=== PATIENT | male | born 1995 | race Caucasian/White ===

== ENCOUNTER 2017-08-03 22:37 | Emergency (ER) | payer OTHER ==
--- NOTE | 2017-08-03 22:48 | EDM.PDOC ---
ED HPI GENERAL MEDICAL PROBLEM - General Chief Complaint: Fever Stated Complaint: WEAK/DIZZY/NAUSEA/CHILLS Time Seen by Provider: 08/03/17 22:48 Source of Information: Reports: Patient - History of Present Illness INITIAL COMMENTS - FREE TEXT/NARRATIVE: HISTORY AND PHYSICAL: History of present illness: [Patient presents to emergency room by private vehicle He has returned from [place] where he was at a cousin's , his cousin from flu B. Unexpectedly. Patient states he has had fever nausea chills since noon today he did take a Tylenol, he reports fever up to 102. Patient is in no distress whatsoever no active fever at current no distress not clinically ill, denies ear pain sore throat no nasal discharge no vomiting no diarrhea no abdominal pain. No current fever nausea vomiting chills sweats no chest pain shortness breath headache dizziness or palpitation no bowel or urine symptoms ] Review of systems: As per history of present illness and below otherwise all systems reviewed and negative. Past medical history: As per history of present illness and as reviewed below otherwise noncontributory. Surgical history: As per history of present illness and as reviewed below otherwise noncontributory. Social history: No reported history of drug or alcohol abuse. Family history: As per history of present illness and as reviewed below otherwise noncontributory. Physical exam: HEENT: Atraumatic, normocephalic, pupils reactive, negative for conjunctival pallor or scleral icterus, mucous membranes moist, throat clear, neck supple, nontender, trachea midline. Tympanic membranes clear no meningeal sign Lungs: Clear to auscultation, breath sounds equal bilaterally, chest nontender. Heart: S1S2, regular, negative for clicks, rubs, or JVD. Abdomen: Soft, nondistended, nontender. Negative for masses or hepatosplenomegaly. Negative for costovertebral tenderness. Pelvis: Stable nontender. Genitourinary: Deferred. Rectal: Deferred. Extremities: Atraumatic, negative for cords or calf pain. Neurovascular unremarkable. Neuro: Awake, alert, oriented. Cranial nerves II through XII unremarkable. Cerebellum unremarkable. Motor and sensory unremarkable throughout. Exam nonfocal. Diagnostics: [Chest 2 views Strep/influenzaUA ] Therapeutics: [None ] Impression: [Medical screening exam Generally healthy 21-year-old male ] Definitive disposition and diagnosis as appropriate pending reevaluation and review of above. 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 [No Known Home Meds] 08/03/17 [History] Past Medical History - Past Surgical History Musculoskeletal Surgical History: Reports: Other (See Below) Social & Family History - Family History Family Medical History: Noncontributory - Tobacco Use Smoking Status *Q: Never Smoker Second Hand Smoke Exposure: No - Recreational Drug Use Recreational Drug Use: No ED ROS GENERAL - Review of Systems Review Of Systems: ROS reveals no pertinent complaints other than HPI. ED EXAM, GENERAL - Physical Exam Exam: See Below Course - Vital Signs Last Recorded V/S: Last Vital Signs Temp 98.2 F 08/03/17 22:48 Pulse 107 H 08/03/17 22:48 Resp 16 08/03/17 22:48 BP 116/74 08/03/17 22:48 Pulse Ox 95 08/03/17 22:48 - Orders/Labs/Meds Orders: Active Orders 24 hr Category Date Time Status Chest 2V [CR] Stat Exams 08/03/17 22:48 Taken CULTURE STREP A CONFIRMATION [] Stat Lab 08/03/17 22:52 Results INFLUENZA A+B AG SCREEN [] Stat Lab 08/03/17 22:52 Ordered STREP SCRN A RAPID W CULT CONF [] Stat Lab 08/03/17 22:52 Ordered UA W/MICROSCOPIC [URIN] Stat Lab 08/03/17 23:17 Ordered Labs: Laboratory Tests 08/03/17 Range/Units 23:17 Urine Color YELLOW Urine Appearance CLEAR Urine pH 5.5 (5.0-8.0) Ur Specific [place] >= 1.030 (1.001-1.035) Urine Protein NEGATIVE (NEGATIVE) mg/dL Urine Glucose (UA) NEGATIVE (NEGATIVE) mg/dL Urine Ketones NEGATIVE (NEGATIVE) mg/dL Urine Occult Blood NEGATIVE (NEGATIVE) Urine Nitrite NEGATIVE (NEGATIVE) Urine Bilirubin NEGATIVE (NEGATIVE) Urine Urobilinogen 0.2 (<2.0) EU/dL Ur Leukocyte Esterase NEGATIVE (NEGATIVE) Urine RBC 0-2 (0-2/HPF) Urine WBC 0-2 (0-5/HPF) Ur Epithelial Cells RARE (NONE-FEW) Urine Bacteria RARE (NEGATIVE) Urine Mucus FEW (NONE-MOD) Departure - Departure Time of Disposition: 23:58 Disposition: Home, Self-Care 01 Condition: Good Clinical Impression: Encounter for medical screening examination - Discharge Information Referrals: PCP,None [Primary Care Provider] - Forms: ED Department Discharge Additional Instructions: No specific treatment warranted at this time Return if symptoms persist or worsen or new concerning symptoms develop Follow-up with primary care in 2 weeks sooner as needed [facility] - Primary Care [address] [place] [id number] The following information is given to patients seen in the emergency department who are being discharged to home. This information is to outline your options for follow-up care. We provide all patients seen in our emergency department with a follow-up referral. The need for follow-up, as well as the timing and circumstances, are variable depending upon the specifics of your emergency department visit. If you don't have a primary care physician on staff, we will provide you with a referral. We always advise you to contact your personal physician following an emergency department visit to inform them of the circumstance of the visit and for follow-up with them and/or the need for any referrals to a consulting specialist. The emergency department will also refer you to a specialist when appropriate. This referral assures that you have the opportunity for follow-up care with a specialist. All of these measure are taken in an effort to provide you with optimal care, which includes your follow-up. Under all circumstances we always encourage you to contact your private physician who remains a resource for coordinating your care. When calling for follow-up care, please make the office aware that this follow-up is from your recent emergency room visit. If for any reason you are refused follow-up, please contact the [facility] emergency department at and asked to speak to the emergency department charge nurse. - My Orders Last 24 Hours: My Active Orders 08/03/17 22:48 Chest 2V [CR] Stat 08/03/17 22:52 CULTURE STREP A CONFIRMATION [RM] Stat INFLUENZA A+B AG SCREEN [RM] Stat STREP SCRN A RAPID W CULT CONF [RM] Stat 08/03/17 23:17 UA W/MICROSCOPIC [URIN] Stat - Assessment/Plan Last 24 Hours: My Active Orders 08/03/17 22:48 Chest 2V [CR] Stat 08/03/17 22:52 CULTURE STREP A CONFIRMATION [RM] Stat INFLUENZA A+B AG SCREEN [RM] Stat STREP SCRN A RAPID W CULT CONF [RM] Stat 08/03/17 23:17 UA W/MICROSCOPIC [URIN] Stat
[2017-08-04 00:06] VITALS: BP 110/71
--- NOTE | 2017-08-04 14:56 | CR ---
EXAM DATE: 08/03/17 PATIENT'S AGE: 21 Patient: INOCENTE MIRELES Facility: [place], [place] Site . Site : 1995 Study: XRay Chest [id number]/12/2018 11:06:08 PM Ordering Physician: Tanya Rader Final Report: INDICATION: fever, fatigue, nausea CHEST, PA AND LATERAL Upright PA and lateral radiographs of the chest were performed. Comparison: No previous studies are currently available for comparison. The lungs appear clear and there are no pleural effusions. Heart size and pulmonary vasculature appear normal. Visualized bones show no significant findings. IMPRESSION: No acute intrathoracic abnormality identified. AARON ACOSTA MD [employer] Dictated by: Waqar Acosta MD @ 08/03/2017 23:13:50 (Electronic Signature) Report Signed by Proxy. [facility]
== END 2017-08-04 00:05 | disposition home or self-care (01) ==
LOC: MW.ED 22:37
DX: Z13.89 Encounter for screening for other disorder (principal); Z88.1 Allergy status to other antibiotic agents; Z88.8 Allergy status to other drugs, medicaments and biological substances
CPT/HCPCS: 71046; 71046-26; 81001; 87081; 87804; 87880; 99283; 99284

== ENCOUNTER 2018-01-20 09:20 | Emergency (ER) | payer BC, OTHER ==
--- NOTE | 2018-01-20 10:06 | EDM.PDOC ---
ED HPI GENERAL MEDICAL PROBLEM - General Chief Complaint: General Stated Complaint: HEADACHES AND FEVER Time Seen by Provider: 01/20/18 10:04 Source of Information: Reports: Patient - History of Present Illness INITIAL COMMENTS - FREE TEXT/NARRATIVE: HISTORY AND PHYSICAL: History of present illness: Patient with sore throat for 24 hours after being around strep positive patient' s no measured fever nausea chills sweats although he does have subjective fever chills and headache No drooling trismus or muffled voice some difficulty with solids no difficulty with liquids Review of systems: As per history of present illness and below otherwise all systems reviewed and negative. Past medical history: As per history of present illness and as reviewed below otherwise noncontributory. Surgical history: As per history of present illness and as reviewed below otherwise noncontributory. Social history: No reported history of drug or alcohol abuse. Family history: As per history of present illness and as reviewed below otherwise noncontributory. Physical exam: HEENT: Atraumatic, normocephalic, pupils reactive, negative for conjunctival pallor or scleral icterus, mucous membranes moist, throat clear, neck supple, nontender, trachea midline.Uttered erythema slight exudates no abscess apparent Lungs: Clear to auscultation, breath sounds equal bilaterally, chest nontender. Heart: S1S2, regular, negative for clicks, rubs, or JVD. Abdomen: Soft, nondistended, nontender. Negative for masses or hepatosplenomegaly. Negative for costovertebral tenderness. Pelvis: Stable nontender. Genitourinary: Deferred. Rectal: Deferred. Extremities: Atraumatic, negative for cords or calf pain. Neurovascular unremarkable. Neuro: Awake, alert, oriented. Cranial nerves II through XII unremarkable. Cerebellum unremarkable. Motor and sensory unremarkable throughout. Exam nonfocal. Diagnostics: [Clinical ] Therapeutics: [Z-Heraclio ] Impression: pharyngitis Definitive disposition and diagnosis as appropriate pending reevaluation and review of above. Throat Pain Score (Numeric/FACES): 7 - Related Data Allergies Allergy/AdvReac Type Severity Reaction Status Date / Time amoxicillin trihydrate Allergy Rash Verified 01/20/18 09:45 [From Augmentin] potassium clavulanate Allergy Rash Verified 01/20/18 09:45 [From Augmentin] Home Meds: Home Meds . [No Known Home Meds] 08/03/17 [History] Past Medical History - Past Health History Medical/Surgical History: Denies Medical/Surgical History Neurological History: Reports: Concussion - Infectious Disease History Infectious Disease History: Reports: Chicken Pox - Past Surgical History Musculoskeletal Surgical History: Reports: Other (See Below) Other Musculoskeletal Surgeries/Procedures:: hand surgery Social & Family History - Family History Family Medical History: Noncontributory - Tobacco Use Smoking Status *Q: Never Smoker - Caffeine Use Caffeine Use: Reports: Energy Drinks, Soda - Recreational Drug Use Recreational Drug Use: No ED ROS GENERAL - Review of Systems Review Of Systems: See Below ED EXAM, GENERAL - Physical Exam Exam: See Below Course - Vital Signs Last Recorded V/S: Last Vital Signs Temp 99.8 F 01/20/18 09:39 Pulse 106 H 01/20/18 09:39 Resp 22 H 01/20/18 09:39 BP 116/73 01/20/18 09:39 Pulse Ox 95 01/20/18 09:39 Departure - Departure Time of Disposition: 10:06 Disposition: Home, Self-Care 01 Condition: Good Clinical Impression: Pharyngitis - Discharge Information Referrals: PCP,None [Primary Care Provider] - Additional Instructions: The following information is given to patients seen in the emergency department who are being discharged to home. This information is to outline your options for follow-up care. We provide all patients seen in our emergency department with a follow-up referral. The need for follow-up, as well as the timing and circumstances, are variable depending upon the specifics of your emergency department visit. If you don't have a primary care physician on staff, we will provide you with a referral. We always advise you to contact your personal physician following an emergency department visit to inform them of the circumstance of the visit and for follow-up with them and/or the need for any referrals to a consulting specialist. The emergency department will also refer you to a specialist when appropriate. This referral assures that you have the opportunity for follow-up care with a specialist. All of these measure are taken in an effort to provide you with optimal care, which includes your follow-up. Under all circumstances we always encourage you to contact your private physician who remains a resource for coordinating your care. When calling for follow-up care, please make the office aware that this follow-up is from your recent emergency room visit. If for any reason you are refused follow-up, please contact the [facility] emergency department at and asked to speak to the emergency department charge nurse.
[2018-01-20 10:18] VITALS: BP 114/63
== END 2018-01-20 10:15 | disposition home or self-care (01) ==
LOC: MW.ED 09:20
DX: J02.9 Acute pharyngitis, unspecified (principal)
CPT/HCPCS: 99282

== ENCOUNTER 2018-12-18 21:03 | Emergency (ER) | payer BC ==
--- NOTE | 2018-12-18 21:25 | EDM.PDOC ---
ED HPI GENERAL MEDICAL PROBLEM - General Chief Complaint: Upper Extremity Injury/Pain Stated Complaint: PT HURT LT HAND Time Seen by Provider: 12/18/18 21:05 Source of Information: Reports: Patient History Limitations: Reports: No Limitations - History of Present Illness INITIAL COMMENTS - FREE TEXT/NARRATIVE: HISTORY AND PHYSICAL: History of present illness: Patient is a 22-year-old male who presents to the emergency room today with complaints of left hand pain post fall. He states he was climbing down from a ladder on the back of a semitruck when he slipped and fell, landing on the ground. Has pain with closing his fist at the proximal second, third and fourth knuckles. Denies hitting his head or having any loss of consciousness. Denies any other extremity involvement. No systemic complaints. Review of systems: As per history of present illness and below otherwise all systems reviewed and negative. Past medical history: As per history of present illness and as reviewed below otherwise noncontributory. Surgical history: As per history of present illness and as reviewed below otherwise noncontributory. Social history: See social history for further information Family history: As per history of present illness and as reviewed below otherwise noncontributory. Physical exam: General: Well-developed and well-nourished 42-year-old male. Alert and oriented. Nontoxic appearing and in no acute distress. HEENT: Atraumatic, normocephalic, pupils equal and reactive bilaterally, negative for conjunctival pallor or scleral icterus, mucous membranes moist, TMs normal bilaterally, throat clear, neck supple, nontender, trachea midline. No drooling or trismus noted. No meningeal signs. No hot potato voice noted. Lungs: Clear to auscultation, breath sounds equal bilaterally, chest nontender. Heart: S1S2, regular rate and rhythm without overt murmur Abdomen: Soft, nondistended, nontender. Negative for masses or hepatosplenomegaly. Negative for costovertebral tenderness. Pelvis: Stable nontender. Genitourinary: Deferred. Rectal: Deferred. Skin: Intact, warm, dry. No lesions or rashes noted. Extremities: Moves all extremities per self without difficulty or deficits, strong radial pulse. Tenderness with palpation to the proximal second, third, fourth knuckles of the left hand. No soft tissue swelling noted. Good flexion and extension. Neurovascular unremarkable. Neuro: Awake, alert, oriented. Cranial nerves II through XII unremarkable. Cerebellum unremarkable. Motor and sensory unremarkable throughout. Exam nonfocal. Notes: X-ray shows no acute findings. Information was shared with the patient. Encouraged to follow up with orthopedic provider. Supportive care measures were reviewed and discussed. Voices understanding and is agreeable to plan of care. Denies any further questions or concerns at this time. Diagnostics: Hand x-ray Therapeutics: Splint, Toradol IM Prescription: None Impression: Left hand injury Plan: 1. Rest, ice, elevate the affected extremity 2. Tylenol and/or Ibuprofen as needed for pain management. 3. Follow up with the Orthopedic provider as we discussed. Return to the ED as needed and as discussed. Definitive disposition and diagnosis as appropriate pending reevaluation and review of above. left hand Pain Score (Numeric/FACES): 8 - Related Data Allergies Allergy/AdvReac Type Severity Reaction Status Date / Time amoxicillin trihydrate Allergy Rash Verified 12/18/18 21:16 [From Augmentin] potassium clavulanate Allergy Rash Verified 12/18/18 21:16 [From Augmentin] Home Meds: Home Meds . [No Known Home Meds] 08/03/17 [History] Past Medical History - Past Health History Medical/Surgical History: Denies Medical/Surgical History Neurological History: Reports: Concussion - Infectious Disease History Infectious Disease History: Reports: Chicken Pox - Past Surgical History Musculoskeletal Surgical History: Reports: Other (See Below) Other Musculoskeletal Surgeries/Procedures:: Left hand surgery Social & Family History - Family History Family Medical History: Noncontributory - Tobacco Use Smoking Status *Q: Never Smoker - Caffeine Use Caffeine Use: Reports: Energy Drinks, Soda - Recreational Drug Use Recreational Drug Use: No Review of Systems - Review of Systems Review Of Systems: ROS reveals no pertinent complaints other than HPI. ED EXAM, GENERAL - Physical Exam Exam: See Below (See dictation) Course - Vital Signs Last Recorded V/S: Last Vital Signs Temp 97.3 F 12/18/18 21:03 Pulse 77 12/18/18 21:03 Resp 18 12/18/18 21:03 BP 124/64 12/18/18 21:03 Pulse Ox 98 12/18/18 21:03 - Orders/Labs/Meds Orders: Active Orders 24 hr Category Date Time Status Hand Comp Min 3V Lt [CR] Stat Exams 12/18/18 21:05 Ordered Ketorolac [Toradol] Med 12/18/18 21:27 Once 60 mg IM ONETIME ONE DME for Discharge [COMM] Stat Oth 12/18/18 21:27 Ordered Departure - Departure Time of Disposition: 21:25 Disposition: Home, Self-Care 01 Clinical Impression: Injury of left hand Qualifiers: Encounter type: initial encounter Qualified Code(s): S69.92XA - Unspecified injury of left wrist, hand and finger(s), initial encounter - Discharge Information Forms: ED Department Discharge Additional Instructions: The following information is given to patients seen in the emergency department who are being discharged to home. This information is to outline your options for follow-up care. We provide all patients seen in our emergency department with a follow-up referral. The need for follow-up, as well as the timing and circumstances, are variable depending upon the specifics of your emergency department visit. If you don't have a primary care physician on staff, we will provide you with a referral. We always advise you to contact your personal physician following an emergency department visit to inform them of the circumstance of the visit and for follow-up with them and/or the need for any referrals to a consulting specialist. The emergency department will also refer you to a specialist when appropriate. This referral assures that you have the opportunity for follow-up care with a specialist. All of these measure are taken in an effort to provide you with optimal care, which includes your follow-up. Under all circumstances we always encourage you to contact your private physician who remains a resource for coordinating your care. When calling for follow-up care, please make the office aware that this follow-up is from your recent emergency room visit. If for any reason you are refused follow-up, please contact the [facility] Emergency Department at and asked to speak to the emergency department charge nurse. [facility] Primary [facility] [address] [place] [address] [id number] [address] [id number] 1. Rest, ice, elevate the affected extremity 2. Tylenol and/or Ibuprofen as needed for pain management. 3. Follow up with the Orthopedic provider as we discussed. Return to the ED as needed and as discussed. - My Orders Last 24 Hours: My Active Orders 12/18/18 21:05 Hand Comp Min 3V Lt [CR] Stat 12/18/18 21:27 Ketorolac [Toradol] 60 mg IM ONETIME ONE DME for Discharge [COMM] Stat - Assessment/Plan Last 24 Hours: My Active Orders 12/18/18 21:05 Hand Comp Min 3V Lt [CR] Stat 12/18/18 21:27 Ketorolac [Toradol] 60 mg IM ONETIME ONE DME for Discharge [COMM] Stat
[2018-12-18] MEDS ORDERED: Ketorolac 60 MG/2 ML SDV IM ONE (21:27)
--- NOTE | 2018-12-18 21:37 | CR ---
INDICATION: Fall, hand injury, pain TECHNIQUE: Hand radiograph 3 views left COMPARISON: None FINDINGS: Bone: No acute fractures or aggressive bone lesions are identified. Joint: The carpal and metacarpal-phalangeal joints are unremarkable in appearance. The interphalangeal joints are normal in appearance. Soft tissue: Unremarkable. No radiopaque foreign bodies are seen. IMPRESSION: 1. No acute osseous injuries or abnormalities are noted. Dictated by: Evelio Melo MD @ 12/18/2018 21:35:00 (Electronically Signed)
[2018-12-18 22:02] VITALS: BP 116/73
== END 2018-12-18 21:49 | disposition home or self-care (01) ==
LOC: MW.ED 21:03
DX: S69.92XA Unspecified injury of left wrist, hand and finger(s), initial encounter (principal); Z88.1 Allergy status to other antibiotic agents; W11.XXXA Fall on and from ladder, initial encounter
CPT/HCPCS: 73130; 96372; 99283; J1885

== ENCOUNTER 2019-02-19 17:29 | Emergency (ER) | payer SELFPAY ==
--- NOTE | 2019-02-19 17:31 | EDM.PDOC ---
ED HPI GENERAL MEDICAL PROBLEM - General Stated Complaint: MIGRAINE Time Seen by Provider: 02/19/19 17:30 Source of Information: Reports: Patient History Limitations: Reports: No Limitations - History of Present Illness INITIAL COMMENTS - FREE TEXT/NARRATIVE: HISTORY AND PHYSICAL: History of present illness: Patient is a 23-year-old male who presents to the emergency room today with complaints of sore throat, cough and headache. He states he has generally felt unwell over the past several days due to the symptoms but has progressively gotten worse today. Patient denies any fever, chills, headache, change in vision , syncope or near syncope. Denies any chest pain, back pain, shortness of breath or cough. Denies any abdominal pain, nausea, vomiting, diarrhea, constipation or dysuria. Has not noted any blood in urine or stool. Patient has been eating and drinking appropriately. Review of systems: As per history of present illness and below otherwise all systems reviewed and negative. Past medical history: As per history of present illness and as reviewed below otherwise noncontributory. Surgical history: As per history of present illness and as reviewed below otherwise noncontributory. Social history: See social history for further information Family history: As per history of present illness and as reviewed below otherwise noncontributory. Physical exam: General: Well-developed and well-nourished 23-year-old male. Alert and oriented. Nontoxic appearing and in no acute distress. HEENT: Atraumatic, normocephalic, pupils equal and reactive bilaterally, negative for conjunctival pallor or scleral icterus, mucous membranes moist, TMs normal bilaterally, throat erythematous without exudate, neck supple, nontender, trachea midline. No drooling or trismus noted. No meningeal signs. No hot potato voice noted. Lungs: Clear to auscultation, breath sounds equal bilaterally, chest nontender. Heart: S1S2, regular rate and rhythm without overt murmur Abdomen: Soft, nondistended, nontender. Skin: Intact, warm, dry. No lesions or rashes noted. Extremities: Atraumatic, moves all extremities per self without difficulty or deficits, negative for cords or calf pain. Neurovascular unremarkable. Neuro: Awake, alert, oriented. Cranial nerves II through XII unremarkable. Cerebellum unremarkable. Motor and sensory unremarkable throughout. Exam nonfocal. Notes: I did offer to to IV fluids and IV Toradol, he declines. He is agreeable to the swabs and chest x-ray. We will do a Toradol IM shot for his headache. All diagnostic are unremarkable. I will treat him with a Z-Heraclio and Phenergan with codeine. We discussed following up with primary care. Supportive care measures were reviewed and discussed. Voices understanding and is agreeable to plan of care. Denies any further questions or concerns at this time. Diagnostics: Influenza, strep, chest x-ray Therapeutics: Toradol IM Prescription: Zpak Phenergan w/ cod (#4 oz) Impression: Bronchitis Plan: 1. Please use Tylenol and/or Ibuprofen as needed for pain and fever management. 2. Get plenty of Rest. Encourage fluids to prevent dehydration. 3. Please follow up with your primary care provider. Return to the ED as needed as discussed. Definitive disposition and diagnosis as appropriate pending reevaluation and review of above. generalized Pain Score (Numeric/FACES): 8 - Related Data Allergies Allergy/AdvReac Type Severity Reaction Status Date / Time amoxicillin trihydrate Allergy Rash Verified 12/18/18 21:16 [From Augmentin] Penicillins Allergy Rash Verified 02/19/19 17:37 potassium clavulanate Allergy Rash Verified 12/18/18 21:16 [From Augmentin] Home Meds: Home Meds . [No Known Home Meds] 08/03/17 [History] Past Medical History - Past Health History Medical/Surgical History: Denies Medical/Surgical History Neurological History: Reports: Concussion - Infectious Disease History Infectious Disease History: Reports: Chicken Pox - Past Surgical History Other Musculoskeletal Surgeries/Procedures:: hand surgery Social & Family History - Family History Family Medical History: Noncontributory - Caffeine Use Caffeine Use: Reports: Energy Drinks, Soda ED ROS GENERAL - Review of Systems Review Of Systems: ROS reveals no pertinent complaints other than HPI. - Physical Exam Exam: See Below (See dictation) Course - Vital Signs Last Recorded V/S: Last Vital Signs Temp 98.1 F 02/19/19 17:35 Pulse 112 H 02/19/19 17:35 Resp 18 02/19/19 17:35 BP 117/78 02/19/19 17:35 Pulse Ox 95 02/19/19 17:35 - Orders/Labs/Meds Orders: Active Orders 24 hr Category Date Time Status CULTURE STREP A CONFIRMATION [RM] Stat Lab 02/19/19 17:44 Results STREP SCRN A RAPID W CULT CONF [RM] Stat Lab 02/19/19 17:44 Results Meds: Medications Discontinued Medications Generic Name Dose Route Start Last Admin Trade Name Corin PRN Reason Stop Dose Admin Ketorolac Tromethamine 60 mg 02/19/19 17:39 02/19/19 18:00 Toradol IM 02/19/19 17:40 60 mg ONETIME ONE Administration Departure - Departure Time of Disposition: 18:16 Disposition: Home, Self-Care 01 Clinical Impression: Bronchitis - Discharge Information Instructions: Upper Respiratory Infection, Adult, [place] Referrals: PCP,None [Primary Care Provider] - Additional Instructions: The following information is given to patients seen in the emergency department who are being discharged to home. This information is to outline your options for follow-up care. We provide all patients seen in our emergency department with a follow-up referral. The need for follow-up, as well as the timing and circumstances, are variable depending upon the specifics of your emergency department visit. If you don't have a primary care physician on staff, we will provide you with a referral. We always advise you to contact your personal physician following an emergency department visit to inform them of the circumstance of the visit and for follow-up with them and/or the need for any referrals to a consulting specialist. The emergency department will also refer you to a specialist when appropriate. This referral assures that you have the opportunity for follow-up care with a specialist. All of these measure are taken in an effort to provide you with optimal care, which includes your follow-up. Under all circumstances we always encourage you to contact your private physician who remains a resource for coordinating your care. When calling for follow-up care, please make the office aware that this follow-up is from your recent emergency room visit. If for any reason you are refused follow-up, please contact the [facility] at and asked to speak to the emergency department charge nurse. [facility] [address] [place] [id number] [place] [address] 1. Please use Tylenol and/or Ibuprofen as needed for pain and fever management. 2. Get plenty of Rest. Encourage fluids to prevent dehydration. 3. Please follow up with your primary care provider. Return to the ED as needed as discussed. - My Orders Last 24 Hours: My Active Orders 02/19/19 17:44 CULTURE STREP A CONFIRMATION [RM] Stat STREP SCRN A RAPID W CULT CONF [RM] Stat - Assessment/Plan Last 24 Hours: My Active Orders 02/19/19 17:44 CULTURE STREP A CONFIRMATION [RM] Stat STREP SCRN A RAPID W CULT CONF [RM] Stat
[2019-02-19] MEDS ORDERED: Ketorolac 60 MG/2 ML SDV IM ONE (17:39)
--- NOTE | 2019-02-19 18:13 | CR ---
Indication: Cough, sore throat, weakness Technique: PA and lateral views of the chest were obtained Comparison: August 03, 2017 Findings: The heart is normal in size. The lungs are clear. No infiltrate, pleural effusion, or pneumothorax is identified. Impression: No acute cardiopulmonary process. Dictated by Jenise Ibarra MD @ Feb 19 2019 6:09PM Signed by Dr. Jenise Ibarra @ Feb 19 2019 6:11PM
[2019-02-19 18:25] VITALS: BP 115/68; PULSE 103
== END 2019-02-19 18:31 | disposition home or self-care (01) ==
LOC: MW.ED 17:29
DX: J40 Bronchitis, not specified as acute or chronic (principal); Z88.0 Allergy status to penicillin; Z88.1 Allergy status to other antibiotic agents
CPT/HCPCS: 71046; 87081; 87804; 87880; 96372; 99283; J1885

== ENCOUNTER 2019-11-05 17:34 | Emergency (ER) | payer BC, OTHER ==
--- NOTE | 2019-11-05 18:00 | EDM.PDOC ---
ED HPI GENERAL MEDICAL PROBLEM - General Chief Complaint: Laceration Stated Complaint: HEAD LACERATION Time Seen by Provider: 11/05/19 17:38 Source of Information: Reports: Patient History Limitations: Reports: No Limitations - History of Present Illness INITIAL COMMENTS - FREE TEXT/NARRATIVE: Presents reporting a laceration to the top of the head. The patient states that they were working around a barn where a barn door came off track and fell and struck the top of his head. No loss of consciousness. He sustained a laceration. He went home and took a shower and cleaned it up. laceration to top of head Pain Score (Numeric/FACES): 6 - Related Data Allergies Allergy/AdvReac Type Severity Reaction Status Date / Time amoxicillin trihydrate Allergy Rash Verified 11/05/19 17:44 [From Augmentin] Penicillins Allergy Rash Verified 11/05/19 17:44 potassium clavulanate Allergy Rash Verified 11/05/19 17:44 [From Augmentin] Home Meds: Home Meds . [No Known Home Meds] 08/03/17 [History] Past Medical History - Past Health History Medical/Surgical History: Denies Medical/Surgical History Neurological History: Reports: Concussion - Infectious Disease History Infectious Disease History: Reports: Chicken Pox - Past Surgical History Other Musculoskeletal Surgeries/Procedures:: hand surgery Social & Family History - Family History Family Medical History: Noncontributory - Tobacco Use Smoking Status *Q: Never Smoker - Caffeine Use Caffeine Use: Reports: Energy Drinks, Soda - Recreational Drug Use Recreational Drug Use: No ED ROS GENERAL - Review of Systems Review Of Systems: Comprehensive ROS is negative, except as noted in HPI. ED EXAM, SKIN/RASH Exam: See Below Exam Limited By: No Limitations General Appearance: Alert, No Apparent Distress Ears: Normal External Exam Nose: Normal Inspection Throat/Mouth: Normal Inspection Head: Other (3cm straight laceration crown of head) Neck: Normal Inspection Respiratory/Chest: No Respiratory Distress, Lungs Clear, Normal Breath Sounds Cardiovascular: Normal Peripheral Pulses Back Exam: Normal Inspection Extremities: Normal Inspection Neurological: Alert, Oriented, CN II-XII Intact, Normal Cognition, No Motor/Sensory Deficits Psychiatric: Normal Affect, Normal Mood Skin: Warm, Dry, Intact, Normal Color, No Rash Lymphatic: No Adenopathy Course - Vital Signs Last Recorded V/S: Last Vital Signs Temp 35.8 C L 11/05/19 17:42 Pulse 77 11/05/19 17:42 Resp 18 11/05/19 17:42 BP 141/87 H 11/05/19 17:42 Pulse Ox 97 11/05/19 17:42 Departure - Departure Time of Disposition: 18:04 Disposition: Home, Self-Care 01 Condition: Good Clinical Impression: Laceration - Discharge Information Referrals: PCP,None [Primary Care Provider] - [facility] [Outside] [facility] [Outside] Additional Instructions: The following information is given to patients seen in the emergency department who are being discharged to home. This information is to outline your options for follow-up care. We provide all patients seen in our emergency department with a follow-up referral. The need for follow-up, as well as the timing and circumstances, are variable depending upon the specifics of your emergency department visit. If you don't have a primary care physician on staff, we will provide you with a referral. We always advise you to contact your personal physician following an emergency department visit to inform them of the circumstance of the visit and for follow-up with them and/or the need for any referrals to a consulting specialist. The emergency department will also refer you to a specialist when appropriate. This referral assures that you have the opportunity for follow-up care with a specialist. All of these measure are taken in an effort to provide you with optimal care, which includes your follow-up. Under all circumstances we always encourage you to contact your private physician who remains a resource for coordinating your care. When calling for follow-up care, please make the office aware that this follow-up is from your recent emergency room visit. If for any reason you are refused follow-up, please contact the [facility] Emergency Department at and asked to speak to the emergency department charge nurse. 1. Signs of infection: Redness, swelling, purulent drainage, report promptly 2. Staple removal 7 days: Urgent care, return to ER, or primary care clinic Sepsis Event Note (ED) - Evaluation Sepsis Screening Result: No Definite Risk - Focused Exam Vital Signs: Vital Signs Temp Pulse Resp BP Pulse Ox 11/05/19 17:42 35.8 C L 77 18 141/87 H 97
[2019-11-05 18:13] VITALS: BP 138/84; PULSE 82
== END 2019-11-05 18:10 | disposition home or self-care (01) ==
LOC: MW.ED 17:34
DX: S01.01XA Laceration without foreign body of scalp, initial encounter (principal); Z88.1 Allergy status to other antibiotic agents; Z88.0 Allergy status to penicillin; W20.8XXA Other cause of strike by thrown, projected or falling object, initial encounter
CPT/HCPCS: 99282

== ENCOUNTER 2019-11-20 13:24 | Emergency (ER) | payer OTHER ==
[2019-11-20 14:35] VITALS: BP 126/80; PULSE 75
== END 2019-11-20 14:33 | disposition left against medical advice (07) ==
LOC: MW.ED 13:24
DX: S01.01XD Laceration without foreign body of scalp, subsequent encounter (principal); W22.8XXD Striking against or struck by other objects, subsequent encounter
CPT/HCPCS: 99281

== ENCOUNTER 2020-03-25 12:59 | Inpatient (IN) | payer SELFPAY ==
[2020-03-25] MEDS ORDERED: Sodium Chloride 0.9% 10 ML Syringe FLUSH PRN (13:17)
[2020-03-25] MEDS ORDERED: Sodium Chloride 0.9% 2.5 ML Syringe FLUSH PRN (13:17)
[2020-03-25] MEDS ORDERED: Lactated Ringers 1,000 ML IV ONE ×2 (13:18→14:15)
[2020-03-25] MEDS ORDERED: fentaNYL 50 MCG/ML SDV IVPUSH ONE (13:19)
[2020-03-25] MEDS ORDERED: Acetaminophen 500 MG Tab PO ONE (13:19)
--- NOTE | 2020-03-25 13:23 | EDM.PDOC ---
ED HPI GENERAL MEDICAL PROBLEM - General Chief Complaint: Abdominal Pain Stated Complaint: ABDOMINAL PAIN Time Seen by Provider: 03/25/20 13:08 Source of Information: Reports: Patient, Old Records History Limitations: Reports: No Limitations - History of Present Illness INITIAL COMMENTS - FREE TEXT/NARRATIVE: This is a very pleasant 24-year-old man with no past medical history presenting with abdominal pain. He reports a 2-day history of suprapubic abdominal pain along with fever. He states he was seen by the [facility] yesterday afternoon, who performed blood work and obtained a urinalysis. We believe he was given intramuscular antibiotics. He states that his urine became darker since last night and his abdominal pain worsens, so he was directed to come to the emergency department. Here in the emergency department, he complains of midline suprapubic abdominal pain along with fever. T-max 102.0 Fahrenheit last night. No antipyretic medications today. Denies any nausea or vomiting. Denies any chills, hematemesis, bloody bowel movements, hematuria, urinary frequency, flank pain, rash, genital ulcers or lesions, penile discharge, sore throat, cough, neck stiffness, chest pain, or shortness of breath. No history of diabetes or immunosuppression. ROS: A 10-point review of systems was negative, except as noted in the HPI (or in the ROS section of this note). Past medical history: Reviewed, no additional pertinent history. Surgical history: Reviewed in system, no additional pertinent history. Social history: Reviewed in system, no additional pertinent history. Family history: Reviewed in system, no additional pertinent history. PHYSICAL EXAM Vital signs reviewed. Nursing notes reviewed. Constitutional: Awake, alert, non-distressed, appears ill. Head: Normocephalic, atraumatic. Eyes: EOMI, conjunctiva normal, no discharge, no scleral icterus. Ears, Nose, Throat: External ears and nose normal, moist oral mucosa. Cardiovascular: Tachycardic, 2+ radial pulse, capillary refill less than 2 seconds. No lower extremity edema. Pulmonary: normal work of breathing, no accessory muscle use. Abdomen/GI: Soft, moderate suprapubic tenderness, nondistended, no guarding or rigidity, no masses. No CVA tenderness, no tenderness at McBurney's point. : Chaperoned examination revealed a nontender prostate, not consistent with prostatitis. Musculoskeletal: No deformities. Integumentary: Appropriate color for ethnicity, warm, dry, no pallor or jaundice, no rash. Neurologic: Alert, answering questions appropriately, normal speech, no facial droop, moving all extremities well. Psychiatric: Appropriate mood and affect, normal thought process. This patient was seen and evaluated during the 2019 SARS-CoV-2 novel coronavirus pandemic period. Community viral transmission is ongoing at time of this encounter and the emergency department is operating under pandemic response procedures. Lower Abdomen Pain Score (Numeric/FACES): 5 - Related Data Allergies Allergy/AdvReac Type Severity Reaction Status Date / Time amoxicillin trihydrate Allergy Rash Verified 03/25/20 13:09 [From Augmentin] Penicillins Allergy Rash Verified 03/25/20 13:09 potassium clavulanate Allergy Rash Verified 03/25/20 13:09 [From Augmentin] Home Meds: Home Meds . [No Known Home Meds] 08/03/17 [History] Past Medical History - Past Health History Medical/Surgical History: Denies Medical/Surgical History Neurological History: Reports: Concussion - Infectious Disease History Infectious Disease History: Reports: Chicken Pox - Past Surgical History Musculoskeletal Surgical History: Reports: Other (See Below) Other Musculoskeletal Surgeries/Procedures:: hand surgery Social & Family History - Family History Family Medical History: No Pertinent Family History - Tobacco Use Tobacco Use Status *Q: Never Tobacco User - Caffeine Use Caffeine Use: Reports: Coffee, Energy Drinks - Recreational Drug Use Recreational Drug Use: No ED ROS GENERAL - Review of Systems Review Of Systems: See Below ED EXAM, GENERAL - Physical Exam Exam: See Below Course - Vital Signs Text/Narrative:: 24-year-old male presenting with fever, tachycardia, and midline suprapubic abdominal pain. Differential diagnosis includes but is not limited to: UTI, pyelonephritis, appendicitis, prostatitis, sepsis, colitis, intra-abdominal infection, diverticulitis, bacteremia, and many others. Patient appears ill. Will obtain blood cultures, IV access, pain medications, IV fluids. Will obtain urinalysis, perform digital rectal examination for prostatitis, and obtain CT scan of the abdomen/pelvis. 2:13 PM: Chaperoned digital rectal examination is not suggestive of prostatitis. CBC shows a leukocytosis with a white blood cell count of 18.49, normal INR and lactate. Patient is tachycardic and was febrile at home. I am concerned for sepsis. We have ordered 2 sets of blood cultures and I ordered IV meropenem. We are waiting on a urinalysis and CT scan of the abdomen/pelvis. Valliant body weight for height 71 kg, target sepsis bolus 2130 mL. 3:05 PM: Metabolic panel shows mild hypokalemia and hyponatremia. Total bilirubin mildly elevated at 1.4. Renal function is normal. Lipase and LFTs are within normal limits except for mild bilirubin elevation. Troponin is negative. We are waiting on a urinalysis and a Covid swab. Waiting for radiology read of CT scan. 3:42 PM: Urinalysis shows no blood or evidence of infection. CT abdomen/pelvis is concerning for relatively severe but strictly uncomplicated sigmoid diverticulitis with a horizontally oriented sigmoid colon just above but not touching the bladder, no evidence of fistula formation at this point. There is no free air. Page out to the hospitalist Dr. Rodrigues, patient is resting comfortably. 4:02 PM: I spoke with the hospitalist Dr. Jeremy Rodrigues who agrees to admit. 4:49 PM: COVID testing negative. Admitted in good condition. Last Recorded V/S: Last Vital Signs Temp 36.7 C 03/25/20 17:43 Pulse 95 03/25/20 17:43 Resp 16 03/25/20 17:43 BP 112/73 03/25/20 17:43 Pulse Ox 97 03/25/20 17:43 - Orders/Labs/Meds Orders: Active Orders 24 hr Category Date Time Status Admission Status [Patient Status] [ADT] Stat ADT 03/25/20 15:30 Active Cardiac Monitoring [RC] CONTINUOUS Care 03/25/20 13:18 Active Overnight Pulse Oximetry [RC] Click to Edit Care 03/25/20 13:18 Active CULTURE BLOOD [BC] Stat Lab 03/25/20 13:30 Received CULTURE BLOOD [BC] Stat Lab 03/25/20 14:00 Received Lactated Ringers [Ringers, Lactated] 250 ml Med 03/25/20 14:30 Active IV .BOLUS Sodium Chloride 0.9% [Saline Flush] Med 03/25/20 13:17 Active 10 ml FLUSH ASDIRECTED PRN Sodium Chloride 0.9% [Saline Flush] Med 03/25/20 13:17 Active 2.5 ml FLUSH ASDIRECTED PRN Blood Culture x2 Reflex Set [OM.PC] Stat Oth 03/25/20 13:17 Ordered Pulse Oximetry Continuous Monitoring [OM.PC] Routine Oth 03/25/20 13:17 Ord ered Saline Lock Insert [OM.PC] Stat Oth 03/25/20 13:17 Ordered Medication Orders Acetaminophen (Tylenol) 650 mg PO Q4H PRN PRN Reason: Pain (Mild 1-3)/fever Lactated Ringer's (Ringers, Lactated) 250 mls @ 1,000 mls/hr IV .BOLUS LORIE Last Admin: 03/25/20 16:30 Dose: 1,000 mls/hr Documented by: CYIRL Meropenem/Sodium Chloride 1 gm (/ Premix) 50 mls @ 100 mls/hr IV Q8H LORIE Lactated Ringer's (Ringers, Lactated) 1,000 mls @ 125 mls/hr IV ASDIRECTED LORIE Morphine Sulfate (Morphine) 2 mg IVPUSH Q4H PRN PRN Reason: Pain Ondansetron HCl (Zofran) 4 mg IVPUSH Q4H PRN PRN Reason: Nausea/Vomiting Sodium Chloride (Saline Flush) 10 ml FLUSH ASDIRECTED PRN PRN Reason: Keep Vein Open Last Admin: 03/25/20 13:36 Dose: 10 ml Documented by: CYRIL Sodium Chloride (Saline Flush) 2.5 ml FLUSH ASDIRECTED PRN PRN Reason: Keep Vein Open Last Admin: 03/25/20 13:36 Dose: 2.5 ml Documented by: CYRIL Labs: Laboratory Tests 03/25/20 03/25/20 03/25/20 Range/Units 13:30 13:30 13:30 WBC 18.49 H (4.0-11.0) K/uL RBC 5.33 (4.50-5.90) M/uL Hgb 15.3 (13.0-17.0) g/dL Hct 46.0 (38.0-50.0) % MCV 86.3 (80.0-98.0) fL MCH 28.7 (27.0-32.0) pg MCHC 33.3 (31.0-37.0) g/dL RDW Std Deviation 41.2 (28.0-62.0) fl RDW Coeff of Heather 13 (11.0-15.0) % Plt Count 276 (150-400) K/uL MPV 10.40 (7.40-12.00) fL Add Manual Diff YES Neutrophils % (Manual) 78 (48.0-80.0) % Lymphocytes % (Manual) 8 L (16.0-40.0) % Monocytes % (Manual) 13 (0.0-15.0) % Eosinophils % (Manual) 1 (0.0-7.0) % Nucleated RBC % 0.0 /100WBC Absolute Seg Neuts 14.4 H (1.4-5.7) Lymphocytes # (Manual) 1.5 (0.6-2.4) Monocytes # (Manual) 2.4 H (0.0-0.8) Eosinophils # (Manual) 0.2 (0.0-0.7) Nucleated RBCs # 0 K/uL INR 1.09 Lactate 0.9 (0.20-2.00) mmol/L Sodium (136-148) mmol/L Potassium (3.5-5.1) mmol/L Chloride (98-107) mmol/L Carbon Dioxide (21.0-32.0) mmol/L BUN (7.0-18.0) mg/dL Creatinine (0.8-1.3) mg/dL Est Cr Clr Drug Dosing mL/min Estimated GFR (MDRD) ml/min Glucose (74-106) mg/dL Calcium (8.5-10.1) mg/dL Total Bilirubin (0.2-1.0) mg/dL AST (15-37) IU/L ALT (14-63) IU/L Alkaline Phosphatase (46-116) U/L Troponin I (0.000-0.056) ng/mL Total Protein (6.4-8.2) g/dL Albumin (3.4-5.0) g/dL Globulin (2.6-4.0) g/dL Albumin/Globulin Ratio (0.9-1.6) Lipase (73-393) U/L Urine Color Urine Appearance Urine pH (5.0-8.0) Ur Specific Duson (1.001-1.035) Urine Protein (NEGATIVE) mg/dL Urine Glucose (UA) (NEGATIVE) mg/dL Urine Ketones (NEGATIVE) mg/dL Urine Occult Blood (NEGATIVE) Urine Nitrite (NEGATIVE) Urine Bilirubin (NEGATIVE) Urine Urobilinogen (<2.0) EU/dL Ur Leukocyte Esterase (NEGATIVE) Urine RBC (0-2/HPF) Urine WBC (0-5/HPF) Ur Epithelial Cells (NONE-FEW) Urine Bacteria (NEGATIVE) SARS-CoV-2 RNA (YESENIA) (NEGATIVE) 03/25/20 03/25/20 03/25/20 Range/Units 13:30 15:09 15:25 WBC (4.0-11.0) K/uL RBC (4.50-5.90) M/uL Hgb (13.0-17.0) g/dL Hct (38.0-50.0) % MCV (80.0-98.0) fL MCH (27.0-32.0) pg MCHC (31.0-37.0) g/dL RDW Std Deviation (28.0-62.0) fl RDW Coeff of Heather (11.0-15.0) % Plt Count (150-400) K/uL MPV (7.40-12.00) fL Add Manual Diff Neutrophils % (Manual) (48.0-80.0) % Lymphocytes % (Manual) (16.0-40.0) % Monocytes % (Manual) (0.0-15.0) % Eosinophils % (Manual) (0.0-7.0) % Nucleated RBC % /100WBC Absolute Seg Neuts (1.4-5.7) Lymphocytes # (Manual) (0.6-2.4) Monocytes # (Manual) (0.0-0.8) Eosinophils # (Manual) (0.0-0.7) Nucleated RBCs # K/uL INR Lactate (0.20-2.00) mmol/L Sodium 135 L (136-148) mmol/L Potassium 3.4 L (3.5-5.1) mmol/L Chloride 100 (98-107) mmol/L Carbon Dioxide 26.5 (21.0-32.0) mmol/L BUN 11 (7.0-18.0) mg/dL Creatinine 1.0 (0.8-1.3) mg/dL Est Cr Clr Drug Dosing 111.94 mL/min Estimated GFR (MDRD) > 60.0 ml/min Glucose 106 (74-106) mg/dL Calcium 8.7 (8.5-10.1) mg/dL Total Bilirubin 1.4 H (0.2-1.0) mg/dL AST 36 (15-37) IU/L ALT 51 (14-63) IU/L Alkaline Phosphatase 67 (46-116) U/L Troponin I < 0.050 (0.000-0.056) ng/mL Total Protein 7.9 (6.4-8.2) g/dL Albumin 4.1 (3.4-5.0) g/dL Globulin 3.8 (2.6-4.0) g/dL Albumin/Globulin Ratio 1.1 (0.9-1.6) Lipase 116 (73-393) U/L Urine Color YELLOW Urine Appearance CLEAR Urine pH 5.5 (5.0-8.0) Ur Specific Duson <= 1.005 (1.001-1.035) Urine Protein NEGATIVE (NEGATIVE) mg/dL Urine Glucose (UA) NEGATIVE (NEGATIVE) mg/dL Urine Ketones NEGATIVE (NEGATIVE) mg/dL Urine Occult Blood NEGATIVE (NEGATIVE) Urine Nitrite NEGATIVE (NEGATIVE) Urine Bilirubin NEGATIVE (NEGATIVE) Urine Urobilinogen 4.0 H (<2.0) EU/dL Ur Leukocyte Esterase NEGATIVE (NEGATIVE) Urine RBC 0-1 (0-2/HPF) Urine WBC 0-1 (0-5/HPF) Ur Epithelial Cells RARE (NONE-FEW) Urine Bacteria RARE (NEGATIVE) SARS-CoV-2 RNA (YESENIA) NEGATIVE (NEGATIVE) Meds: Medications Generic Name Dose Route Start Last Admin Trade Name Freq PRN Reason Stop Dose Admin Acetaminophen 650 mg 03/25/20 17:32 Tylenol PO Q4H PRN Pain (Mild 1-3)/fever Lactated Ringer's 250 mls @ 1,000 mls/hr 03/25/20 14:30 03/25/20 16:30 Ringers, Lactated IV 1,000 mls/hr .BOLUS LORIE Administration Meropenem/Sodium Chloride 1 gm 50 mls @ 100 mls/hr 03/25/20 23:00 / Premix IV Q8H LORIE Lactated Ringer's 1,000 mls @ 125 mls/hr 03/25/20 17:30 Ringers, Lactated IV ASDIRECTED LORIE Morphine Sulfate 2 mg 03/25/20 17:28 Morphine IVPUSH Q4H PRN Pain Ondansetron HCl 4 mg 03/25/20 17:32 Zofran IVPUSH Q4H PRN Nausea/Vomiting Sodium Chloride 10 ml 03/25/20 13:17 03/25/20 13:36 Saline Flush FLUSH 10 ml ASDIRECTED PRN Administration Keep Vein Open Sodium Chloride 2.5 ml 03/25/20 13:17 03/25/20 13:36 Saline Flush FLUSH 2.5 ml ASDIRECTED PRN Administration Keep Vein Open Discontinued Medications Generic Name Dose Route Start Last Admin Trade Name Freq PRN Reason Stop Dose Admin Acetaminophen 1,000 mg 03/25/20 13:19 03/25/20 13:35 Tylenol Extra Strength PO 03/25/20 13:20 1,000 mg ONETIME ONE Administration Fentanyl 100 mcg 03/25/20 13:19 03/25/20 13:35 Fentanyl IVPUSH 03/25/20 13:20 100 mcg ONETIME ONE Administration Lactated Ringer's 1,000 mls @ 999 mls/hr 03/25/20 13:18 03/25/20 13:35 Ringers, Lactated IV 03/25/20 14:18 999 mls/hr .BOLUS ONE Administration Lactated Ringer's 1,000 mls @ 999 mls/hr 03/25/20 14:15 03/25/20 15:00 Ringers, Lactated IV 03/25/20 15:15 999 mls/hr .BOLUS ONE Administration Meropenem/Sodium Chloride 1 gm 50 mls @ 100 mls/hr 03/25/20 14:45 03/25/20 15:01 / Premix IV 03/25/20 15:14 100 mls/hr ONETIME ONE Administration Iopamidol 100 ml 03/25/20 14:34 03/25/20 14:38 Isovue Multipack-370 (76%) IVPUSH 03/25/20 14:35 100 ml ONETIME STA Administration Potassium Chloride 40 meq 03/25/20 17:31 Klor-Con M20 PO 03/25/20 17:32 ONETIME ONE Departure - Departure Time of Disposition: 15:42 Disposition: Admitted As Inpatient 64 Condition: Good Clinical Impression: Sigmoid diverticulitis - Discharge Information Sepsis Event Note (ED) - Evaluation Sepsis Screening Result: No Definite Risk - Focused Exam Vital Signs: Vital Signs Temp Pulse Resp BP Pulse Ox 03/25/20 16:28 36.2 C 88 18 114/69 95 03/25/20 15:09 36.2 C 95 18 94 L 03/25/20 13:09 36.6 C 115 H 18 116/63 95 - My Orders Last 24 Hours: My Active Orders 03/25/20 13:17 Sodium Chloride 0.9% [Saline Flush] 10 ml FLUSH ASDIRECTED PRN Sodium Chloride 0.9% [Saline Flush] 2.5 ml FLUSH ASDIRECTED PRN Blood Culture x2 Reflex Set [OM.PC] Stat Pulse Oximetry Continuous Monitoring [OM.PC] Routine Saline Lock Insert [OM.PC] Stat 03/25/20 13:18 Cardiac Monitoring [RC] CONTINUOUS Overnight Pulse Oximetry [RC] Click to Edit 03/25/20 13:30 CULTURE BLOOD [BC] Stat 03/25/20 14:00 CULTURE BLOOD [BC] Stat 03/25/20 14:30 Lactated Ringers [Ringers, Lactated] 250 ml IV .BOLUS 03/25/20 15:30 Admission Status [Patient Status] [ADT] Stat - Assessment/Plan Last 24 Hours: My Active Orders 03/25/20 13:17 Sodium Chloride 0.9% [Saline Flush] 10 ml FLUSH ASDIRECTED PRN Sodium Chloride 0.9% [Saline Flush] 2.5 ml FLUSH ASDIRECTED PRN Blood Culture x2 Reflex Set [OM.PC] Stat Pulse Oximetry Continuous Monitoring [OM.PC] Routine Saline Lock Insert [OM.PC] Stat 03/25/20 13:18 Cardiac Monitoring [RC] CONTINUOUS Overnight Pulse Oximetry [RC] Click to Edit 03/25/20 13:30 CULTURE BLOOD [BC] Stat 03/25/20 14:00 CULTURE BLOOD [BC] Stat 03/25/20 14:30 Lactated Ringers [Ringers, Lactated] 250 ml IV .BOLUS 03/25/20 15:30 Admission Status [Patient Status] [ADT] Stat
--- NOTE | 2020-03-25 13:42 | CR ---
Indication: Sepsis Comparison: Two-view chest February 19, 2019 Technique: Single AP view chest Findings: There is mild interstitial thickening. There is no focal consolidation, effusion, or pneumothorax. The cardiomediastinal silhouette is within normal limits. The bony thorax is grossly intact. Impression: Mild interstitial prominence is appreciated which may represent mild pulmonary vascular congestion. No dense consolidation is seen. Dictated by Karan Martin MD @ Mar 25 2020 1:39PM Signed by Dr. Karan Martin @ Mar 25 2020 1:40PM
[2020-03-25] MEDS ORDERED: Meropenem 1 GM in Sodium Chloride 0.9% 100 ML IV ONE (14:12)
[2020-03-25 14:14] LABS: BLOOD UREA NITROGEN,BUN 11 mg/dL (7.0-18.0); CARBON DIOXIDE,CO2 26.5 mmol/L (21.0-32.0); CHLORIDE,CL 100 mmol/L (98-107); GLUCOSE RANDOM 106 mg/dL (74-106); LIPASE 116 U/L (73-393); POTASSIUM,K 3.4 mmol/L (3.5-5.1); SODIUM,NA 135 mmol/L (136-148)
[2020-03-25] MEDS ORDERED: Lactated Ringers 250 ML IV SCH (14:30)
[2020-03-25] MEDS ORDERED: Iopamidol 755 MG/ML 500 ML Multipack Bottle IVPUSH STA (14:34)
[2020-03-25] MEDS ORDERED: Meropenem Premix 1 GM in Premix Bag 1 BAG IV ONE (14:45)
--- NOTE | 2020-03-25 15:32 | CT ---
INDICATION: Suprapubic abdominal pain and dysuria for 2 days COMPARISON: None TECHNIQUE: CT examination of the abdomen and pelvis was performed following the uneventful intravenous administration of 100 cc of Isovue 370. Thin section axial images were obtained from the lung bases through the pubic symphysis. Oral contrast was not administered. Please note that all CT scans at this facility use dose modulation, iterative reconstruction, and/or weight-based dosing when appropriate to reduce radiation dose to as low as reasonably achievable. FINDINGS: LUNG BASES: The lung bases as visualized appear normal.The heart size is normal at the lung bases. LIVER/BILIARY SYSTEM:The liver is normal in size and configuration. There is no focal mass and there is no intra- or extra hepatic biliary ductal dilatation.Hepatic steatosis. Gallbladder appears normal ADRENALS: Normal KIDNEYS, URETERS and BLADDER:Kidneys and ureters appear normal. The bladder is discussed below under gastrointestinal system SPLEEN:Normal appearance. PANCREAS: Appears normal. RETROPERITONEUM and MESENTERY: There is no mass, adenopathy or aortic aneurysm. GASTROINTESTINAL SYSTEM: In this patient, this sigmoid colon is horizontally oriented lying just above the bladder. There is diffuse thickening of the sigmoid and there is marked inflammatory change in the sigmoid mesocolon. There is trace air within the sigmoid mesocolon but there is no free widespread intraperitoneal air. There is some fluid in the mesocolon but there is no collection. This is a relatively severe but strictly speaking uncomplicated sigmoid diverticulitis. Inflammatory change bridges towards the dome of the bladder but the sigmoid does not touch the bladder and I do not see gas within the bladder to suggest fistula formation. The bladder is not significantly distended. PELVIS: No mass or adenopathy.. OSSEOUS STRUCTURES and ABDOMINAL WALL: There is an age-appropriate appearance of the osseous structures.No significant abdominal wall defect. OTHER: No free fluid or free air. IMPRESSION: 1. Relatively severe but strictly speaking uncomplicated sigmoid diverticulitis. The sigmoid is horizontally oriented and is lying just above but not touching the bladder. There is no evidence of fistula formation at this time. Please review the comment regarding more details. 2. Discussed with Dr. Edwar Silver at 3:25March 25, [address] that all [address] scans at this facility use dose modulation, iterative reconstruction, and/or weight-based dosing when appropriate to reduce radiation dose to as low as reasonably achievable. Dictated by Germain Dang MD @ Mar 25 2020 3:18PM Signed by Dr. Germain Dang @ Mar 25 2020 3:29PM
--- NOTE | 2020-03-25 16:20 | PCM.HP.2 ---
H&P History of Present Illness - General Date of Service: 03/25/20 Admit Problem/Dx: Admission Diagnosis/Problem Admission Diagnosis/Problem Diverticulitis - History of Present Illness Initial Comments - Free Text/Narative: 24-year-old male admitted for diverticulitis. Patient states that yesterday evening he was having severe lower abdominal pain, with a temperature of 102 F. Per records patient was noted to have visited [facility] yesterday afternoon and had blood work performed. On admission patient states lower abdominal pain, no fever, no chills, no nausea, no vomiting. Patient also denies bloody bowel movements, hematuria, flank pain. Patient states his abdominal pain was severe on admission to the ED and he was given fentanyl. Blood cultures obtained, IV fluids, pain medications given in the ED. CT abdomen pelvis concerning for strictly uncomplicated sigmoid diverticulitis. No evidence of free air or fistula formation. White blood cell count admission 18.49, normal lactate, K+ 3.4. Patient was started on IV meropenem. No past medical history, patient does not take any prescribed medications, patient states allergy to amoxicillin and penicillins which gives him a rash. Lower Abdomen Pain Score (Numeric/FACES): 5 - Related Data Allergies/Adverse Reactions: Allergies Allergy/AdvReac Type Severity Reaction Status Date / Time amoxicillin trihydrate Allergy Rash Verified 03/25/20 13:09 [From Augmentin] Penicillins Allergy Rash Verified 03/25/20 13:09 potassium clavulanate Allergy Rash Verified 03/25/20 13:09 [From Augmentin] Home Medications: Home Meds . [No Known Home Meds] 08/03/17 [History] Past Medical History - Past Health History Medical/Surgical History: Denies Medical/Surgical History Neurological History: Reports: Concussion - Infectious Disease History Infectious Disease History: Reports: Chicken Pox - Past Surgical History Musculoskeletal Surgical History: Reports: Other (See Below) Other Musculoskeletal Surgeries/Procedures:: hand surgery Social & Family History - Family History Family Medical History: No Pertinent Family History - Tobacco Use Tobacco Use Status *Q: Never Tobacco User - Caffeine Use Caffeine Use: Reports: Coffee, Energy Drinks - Recreational Drug Use Recreational Drug Use: No H&P Review of Systems - Review of Systems: Review Of Systems: See Below General: Denies: Fever, Chills Pulmonary: Denies: Shortness of Breath, Wheezing Cardiovascular: Denies: Chest Pain, Palpitations, Dyspnea on Exertion Gastrointestinal: Reports: Abdominal Pain. Denies: Black Stool, Bloody Stool, Diarrhea, Decreased Appetite, Nausea Genitourinary: Denies: Dysuria, Frequency Psychiatric: Denies: Confusion, Depression Neurological: Denies: Confusion, Dizziness, Headache Exam - Exam Exam: See Below - Vital Signs Vital Signs: Last Vital Signs Temp 97.1 F 03/25/20 15:09 Pulse 95 03/25/20 15:09 Resp 18 03/25/20 15:09 BP 116/63 03/25/20 13:09 Pulse Ox 94 L 03/25/20 15:09 Weight: 245 lb - Exam General: Alert, Oriented Lungs: Clear to Auscultation, Normal Respiratory Effort Cardiovascular: Regular Rate, Regular Rhythm GI/Abdominal Exam: Soft, Tender (lower abdomen, suprapubic area) Extremities: No Pedal Edema Neuro Extensive - Mental Status: Alert, Oriented x3 - Patient Data Lab Results Last 24 hrs: Laboratory Results - last 24 hr 03/25/20 03/25/20 03/25/20 Range/Units 13:30 13:30 13:30 WBC 18.49 H (4.0-11.0) K/uL RBC 5.33 (4.50-5.90) M/uL Hgb 15.3 (13.0-17.0) g/dL Hct 46.0 (38.0-50.0) % MCV 86.3 (80.0-98.0) fL MCH 28.7 (27.0-32.0) pg MCHC 33.3 (31.0-37.0) g/dL RDW Std Deviation 41.2 (28.0-62.0) fl RDW Coeff of Heather 13 (11.0-15.0) % Plt Count 276 (150-400) K/uL MPV 10.40 (7.40-12.00) fL Add Manual Diff YES Neutrophils % (Manual) 78 (48.0-80.0) % Lymphocytes % (Manual) 8 L (16.0-40.0) % Monocytes % (Manual) 13 (0.0-15.0) % Eosinophils % (Manual) 1 (0.0-7.0) % Nucleated RBC % 0.0 /100WBC Absolute Seg Neuts 14.4 H (1.4-5.7) Lymphocytes # (Manual) 1.5 (0.6-2.4) Monocytes # (Manual) 2.4 H (0.0-0.8) Eosinophils # (Manual) 0.2 (0.0-0.7) Nucleated RBCs # 0 K/uL INR 1.09 Lactate 0.9 (0.20-2.00) mmol/L Sodium (136-148) mmol/L Potassium (3.5-5.1) mmol/L Chloride (98-107) mmol/L Carbon Dioxide (21.0-32.0) mmol/L BUN (7.0-18.0) mg/dL Creatinine (0.8-1.3) mg/dL Est Cr Clr Drug Dosing mL/min Estimated GFR (MDRD) ml/min Glucose (74-106) mg/dL Calcium (8.5-10.1) mg/dL Total Bilirubin (0.2-1.0) mg/dL AST (15-37) IU/L ALT (14-63) IU/L Alkaline Phosphatase (46-116) U/L Troponin I (0.000-0.056) ng/mL Total Protein (6.4-8.2) g/dL Albumin (3.4-5.0) g/dL Globulin (2.6-4.0) g/dL Albumin/Globulin Ratio (0.9-1.6) Lipase (73-393) U/L Urine Color Urine Appearance Urine pH (5.0-8.0) Ur Specific [place] (1.001-1.035) Urine Protein (NEGATIVE) mg/dL Urine Glucose (UA) (NEGATIVE) mg/dL Urine Ketones (NEGATIVE) mg/dL Urine Occult Blood (NEGATIVE) Urine Nitrite (NEGATIVE) Urine Bilirubin (NEGATIVE) Urine Urobilinogen (<2.0) EU/dL Ur Leukocyte Esterase (NEGATIVE) Urine RBC (0-2/HPF) Urine WBC (0-5/HPF) Ur Epithelial Cells (NONE-FEW) Urine Bacteria (NEGATIVE) SARS-CoV-2 RNA (YESENIA) (NEGATIVE) 03/25/20 03/25/20 03/25/20 Range/Units 13:30 15:09 15:25 WBC (4.0-11.0) K/uL RBC (4.50-5.90) M/uL Hgb (13.0-17.0) g/dL Hct (38.0-50.0) % MCV (80.0-98.0) fL MCH (27.0-32.0) pg MCHC (31.0-37.0) g/dL RDW Std Deviation (28.0-62.0) fl RDW Coeff of Heather (11.0-15.0) % Plt Count (150-400) K/uL MPV (7.40-12.00) fL Add Manual Diff Neutrophils % (Manual) (48.0-80.0) % Lymphocytes % (Manual) (16.0-40.0) % Monocytes % (Manual) (0.0-15.0) % Eosinophils % (Manual) (0.0-7.0) % Nucleated RBC % /100WBC Absolute Seg Neuts (1.4-5.7) Lymphocytes # (Manual) (0.6-2.4) Monocytes # (Manual) (0.0-0.8) Eosinophils # (Manual) (0.0-0.7) Nucleated RBCs # K/uL INR Lactate (0.20-2.00) mmol/L Sodium 135 L (136-148) mmol/L Potassium 3.4 L (3.5-5.1) mmol/L Chloride 100 (98-107) mmol/L Carbon Dioxide 26.5 (21.0-32.0) mmol/L BUN 11 (7.0-18.0) mg/dL Creatinine 1.0 (0.8-1.3) mg/dL Est Cr Clr Drug Dosing 111.94 mL/min Estimated GFR (MDRD) > 60.0 ml/min Glucose 106 (74-106) mg/dL Calcium 8.7 (8.5-10.1) mg/dL Total Bilirubin 1.4 H (0.2-1.0) mg/dL AST 36 (15-37) IU/L ALT 51 (14-63) IU/L Alkaline Phosphatase 67 (46-116) U/L Troponin I < 0.050 (0.000-0.056) ng/mL Total Protein 7.9 (6.4-8.2) g/dL Albumin 4.1 (3.4-5.0) g/dL Globulin 3.8 (2.6-4.0) g/dL Albumin/Globulin Ratio 1.1 (0.9-1.6) Lipase 116 (73-393) U/L Urine Color YELLOW Urine Appearance CLEAR Urine pH 5.5 (5.0-8.0) Ur Specific [place] <= 1.005 (1.001-1.035) Urine Protein NEGATIVE (NEGATIVE) mg/dL Urine Glucose (UA) NEGATIVE (NEGATIVE) mg/dL Urine Ketones NEGATIVE (NEGATIVE) mg/dL Urine Occult Blood NEGATIVE (NEGATIVE) Urine Nitrite NEGATIVE (NEGATIVE) Urine Bilirubin NEGATIVE (NEGATIVE) Urine Urobilinogen 4.0 H (<2.0) EU/dL Ur Leukocyte Esterase NEGATIVE (NEGATIVE) Urine RBC 0-1 (0-2/HPF) Urine WBC 0-1 (0-5/HPF) Ur Epithelial Cells RARE (NONE-FEW) Urine Bacteria RARE (NEGATIVE) SARS-CoV-2 RNA (YESENIA) NEGATIVE (NEGATIVE) Result Diagrams: 03/25/20 13:30 03/25/20 13:30 Sepsis Event Note - Evaluation Sepsis Screening Result: No Definite Risk - Focused Exam Vital Signs: Vital Signs Temp Pulse Resp BP Pulse Ox 03/25/20 15:09 97.1 F 95 18 94 L 03/25/20 13:09 97.8 F 115 H 18 116/63 95 Problem List Initiated/Reviewed/Updated: Yes Orders Last 24hrs: Active Orders 24 hr Category Date Time Status Admission Status [Patient Status] [ADT] Stat ADT 03/25/20 15:30 Active Cardiac Monitoring [RC] CONTINUOUS Care 03/25/20 13:18 Active Overnight Pulse Oximetry [RC] Click to Edit Care 03/25/20 13:18 Active CULTURE BLOOD [BC] Stat Lab 03/25/20 13:30 Received CULTURE BLOOD [BC] Stat Lab 03/25/20 14:00 Received Lactated Ringers [Ringers, Lactated] 250 ml Med 03/25/20 14:30 Active IV .BOLUS Sodium Chloride 0.9% [Saline Flush] Med 03/25/20 13:17 Active 10 ml FLUSH ASDIRECTED PRN Sodium Chloride 0.9% [Saline Flush] Med 03/25/20 13:17 Active 2.5 ml FLUSH ASDIRECTED PRN Blood Culture x2 Reflex Set [OM.PC] Stat Oth 03/25/20 13:17 Ordered Pulse Oximetry Continuous Monitoring [OM.PC] Routine Oth 03/25/20 13:17 Ordered Saline Lock Insert [OM.PC] Stat Oth 03/25/20 13:17 Ordered Medication Orders Lactated Ringer's (Ringers, Lactated) 250 mls @ 1,000 mls/hr IV .BOLUS LORIE Sodium Chloride (Saline Flush) 10 ml FLUSH ASDIRECTED PRN PRN Reason: Keep Vein Open Last Admin: 03/25/20 13:36 Dose: 10 ml Documented by: CYRIL Sodium Chloride (Saline Flush) 2.5 ml FLUSH ASDIRECTED PRN PRN Reason: Keep Vein Open Last Admin: 03/25/20 13:36 Dose: 2.5 ml Documented by: CYRIL Assessment/Plan Comment:: DiverticulitisIV Meropenem Q8, IV fluids LR 125ml/hr, NPO, IV morphine 2mg Q4hr, Zofran 4 mg Q4 hr PRN Leukocytosismost likely secondary to diverticulitis, patient will receive IV a ntibiotics, recheck CBC in the a.m. HypokalemiaK+ 3.4, replete with 40 mEq potassium. Recheck BMP in a.m.
[2020-03-25] MEDS ORDERED: Morphine 2 MG/ML SYRINGE IVPUSH PRN (17:28)
[2020-03-25] MEDS ORDERED: Potassium Chloride 20 MEQ Tab.ER PO ONE (17:31)
[2020-03-25] MEDS ORDERED: Ondansetron 4 MG/2 ML SDV IVPUSH PRN (17:32)
[2020-03-25] MEDS: Lactated Ringers 1,000 ML IV SCH (17:56)
[2020-03-25] MEDS: Acetaminophen 325 MG Tab PO PRN (21:24)
[2020-03-26] MEDS: Meropenem Premix 1 GM in Premix Bag 1 BAG IV SCH ×4 (00:14→23:10)
[2020-03-26] MEDS: Lactated Ringers 1,000 ML IV SCH ×3 (03:39→23:09)
[2020-03-26 05:31] LABS: BLOOD UREA NITROGEN,BUN 9 mg/dL (7.0-18.0); CHLORIDE,CL 103 mmol/L (98-107); GLUCOSE RANDOM 100 mg/dL (74-106); POTASSIUM,K 3.9 mmol/L (3.5-5.1); SODIUM,NA 136 mmol/L (136-148)
[2020-03-26] MEDS: Acetaminophen 325 MG Tab PO PRN (07:32)
--- NOTE | 2020-03-26 13:07 | PCM.PN ---
- General Info Date of Service: 03/26/20 Subjective Update: Patient states he slept well, denies any abdominal pain overnight or this morning. Patient did not require any pain medication. Patient denies chills, nausea, vomiting, chest pain, shortness of breath. - Review of Systems General: Reports: Fever. Denies: Chills Pulmonary: Denies: Shortness of Breath, Cough Cardiovascular: Denies: Chest Pain, Palpitations, Dyspnea on Exertion Gastrointestinal: Denies: Abdominal Pain, Diarrhea, Nausea, Vomiting Musculoskeletal: Denies: Back Pain Neurological: Denies: Confusion, Dizziness Psychiatric: Denies: Confusion - Patient Data Vitals - Most Recent: Last Vital Signs Temp 97.9 F 03/26/20 11:35 Pulse 81 03/26/20 11:35 Resp 20 03/26/20 11:35 BP 118/70 03/26/20 11:35 Pulse Ox 96 03/26/20 11:35 Weight - Most Recent: 245 lb 3.2 oz I&O - Last 24 Hours: Intake & Output 03/25/20 03/26/20 03/26/20 22:59 06:59 14:59 Intake Total 1083 Output Total 650 Balance 433 Lab Results Last 24 Hours: Laboratory Results - last 24 hr 03/25/20 03/25/20 03/25/20 Range/Units 13:30 13:30 13:30 WBC 18.49 H (4.0-11.0) K/uL RBC 5.33 (4.50-5.90) M/uL Hgb 15.3 (13.0-17.0) g/dL Hct 46.0 (38.0-50.0) % MCV 86.3 (80.0-98.0) fL MCH 28.7 (27.0-32.0) pg MCHC 33.3 (31.0-37.0) g/dL RDW Std Deviation 41.2 (28.0-62.0) fl RDW Coeff of Heather 13 (11.0-15.0) % Plt Count 276 (150-400) K/uL MPV 10.40 (7.40-12.00) fL Neut % (Auto) (48.0-80.0) % Lymph % (Auto) (16.0-40.0) % Lucas % (Auto) (0.0-15.0) % Eos % (Auto) (0.0-7.0) % Baso % (Auto) (0.0-1.5) % Neut # (Auto) (1.4-5.7) K/uL Lymph # (Auto) (0.6-2.4) K/uL Lucas # (Auto) (0.0-0.8) K/uL Eos # (Auto) (0.0-0.7) K/uL Baso # (Auto) (0.0-0.1) K/uL Add Manual Diff YES Neutrophils % (Manual) 78 (48.0-80.0) % Lymphocytes % (Manual) 8 L (16.0-40.0) % Monocytes % (Manual) 13 (0.0-15.0) % Eosinophils % (Manual) 1 (0.0-7.0) % Nucleated RBC % 0.0 /100WBC Absolute Seg Neuts 14.4 H (1.4-5.7) Lymphocytes # (Manual) 1.5 (0.6-2.4) Monocytes # (Manual) 2.4 H (0.0-0.8) Eosinophils # (Manual) 0.2 (0.0-0.7) Nucleated RBCs # 0 K/uL INR 1.09 Lactate 0.9 (0.20-2.00) mmol/L Sodium (136-148) mmol/L Potassium (3.5-5.1) mmol/L Chloride (98-107) mmol/L Carbon Dioxide (21.0-32.0) mmol/L BUN (7.0-18.0) mg/dL Creatinine (0.8-1.3) mg/dL Est Cr Clr Drug Dosing mL/min Estimated GFR (MDRD) ml/min Glucose (74-106) mg/dL Calcium (8.5-10.1) mg/dL Total Bilirubin (0.2-1.0) mg/dL AST (15-37) IU/L ALT (14-63) IU/L Alkaline Phosphatase (46-116) U/L Troponin I (0.000-0.056) ng/mL Total Protein (6.4-8.2) g/dL Albumin (3.4-5.0) g/dL Globulin (2.6-4.0) g/dL Albumin/Globulin Ratio (0.9-1.6) Lipase (73-393) U/L Urine Color Urine Appearance Urine pH (5.0-8.0) Ur Specific Ord (1.001-1.035) Urine Protein (NEGATIVE) mg/dL Urine Glucose (UA) (NEGATIVE) mg/dL Urine Ketones (NEGATIVE) mg/dL Urine Occult Blood (NEGATIVE) Urine Nitrite (NEGATIVE) Urine Bilirubin (NEGATIVE) Urine Urobilinogen (<2.0) EU/dL Ur Leukocyte Esterase (NEGATIVE) Urine RBC (0-2/HPF) Urine WBC (0-5/HPF) Ur Epithelial Cells (NONE-FEW) Urine Bacteria (NEGATIVE) SARS-CoV-2 RNA (YESENIA) (NEGATIVE) 03/25/20 03/25/20 03/25/20 Range/Units 13:30 15:09 15:25 WBC (4.0-11.0) K/uL RBC (4.50-5.90) M/uL Hgb (13.0-17.0) g/dL Hct (38.0-50.0) % MCV (80.0-98.0) fL MCH (27.0-32.0) pg MCHC (31.0-37.0) g/dL RDW Std Deviation (28.0-62.0) fl RDW Coeff of Heather (11.0-15.0) % Plt Count (150-400) K/uL MPV (7.40-12.00) fL Neut % (Auto) (48.0-80.0) % Lymph % (Auto) (16.0-40.0) % Lucas % (Auto) (0.0-15.0) % Eos % (Auto) (0.0-7.0) % Baso % (Auto) (0.0-1.5) % Neut # (Auto) (1.4-5.7) K/uL Lymph # (Auto) (0.6-2.4) K/uL Lucas # (Auto) (0.0-0.8) K/uL Eos # (Auto) (0.0-0.7) K/uL Baso # (Auto) (0.0-0.1) K/uL Add Manual Diff Neutrophils % (Manual) (48.0-80.0) % Lymphocytes % (Manual) (16.0-40.0) % Monocytes % (Manual) (0.0-15.0) % Eosinophils % (Manual) (0.0-7.0) % Nucleated RBC % /100WBC Absolute Seg Neuts (1.4-5.7) Lymphocytes # (Manual) (0.6-2.4) Monocytes # (Manual) (0.0-0.8) Eosinophils # (Manual) (0.0-0.7) Nucleated RBCs # K/uL INR Lactate (0.20-2.00) mmol/L Sodium 135 L (136-148) mmol/L Potassium 3.4 L (3.5-5.1) mmol/L Chloride 100 (98-107) mmol/L Carbon Dioxide 26.5 (21.0-32.0) mmol/L BUN 11 (7.0-18.0) mg/dL Creatinine 1.0 (0.8-1.3) mg/dL Est Cr Clr Drug Dosing 111.94 mL/min Estimated GFR (MDRD) > 60.0 ml/min Glucose 106 (74-106) mg/dL Calcium 8.7 (8.5-10.1) mg/dL Total Bilirubin 1.4 H (0.2-1.0) mg/dL AST 36 (15-37) IU/L ALT 51 (14-63) IU/L Alkaline Phosphatase 67 (46-116) U/L Troponin I < 0.050 (0.000-0.056) ng/mL Total Protein 7.9 (6.4-8.2) g/dL Albumin 4.1 (3.4-5.0) g/dL Globulin 3.8 (2.6-4.0) g/dL Albumin/Globulin Ratio 1.1 (0.9-1.6) Lipase 116 (73-393) U/L Urine Color YELLOW Urine Appearance CLEAR Urine pH 5.5 (5.0-8.0) Ur Specific [place] <= 1.005 (1.001-1.035) Urine Protein NEGATIVE (NEGATIVE) mg/dL Urine Glucose (UA) NEGATIVE (NEGATIVE) mg/dL Urine Ketones NEGATIVE (NEGATIVE) mg/dL Urine Occult Blood NEGATIVE (NEGATIVE) Urine Nitrite NEGATIVE (NEGATIVE) Urine Bilirubin NEGATIVE (NEGATIVE) Urine Urobilinogen 4.0 H (<2.0) EU/dL Ur Leukocyte Esterase NEGATIVE (NEGATIVE) Urine RBC 0-1 (0-2/HPF) Urine WBC 0-1 (0-5/HPF) Ur Epithelial Cells RARE (NONE-FEW) Urine Bacteria RARE (NEGATIVE) SARS-CoV-2 RNA (YESENIA) NEGATIVE (NEGATIVE) 03/26/20 03/26/20 Range/Units 04:42 04:42 WBC 17.59 H (4.0-11.0) K/uL RBC 4.83 (4.50-5.90) M/uL Hgb 13.8 (13.0-17.0) g/dL Hct 42.1 (38.0-50.0) % MCV 87.2 (80.0-98.0) fL MCH 28.6 (27.0-32.0) pg MCHC 32.8 (31.0-37.0) g/dL RDW Std Deviation 41.5 (28.0-62.0) fl RDW Coeff of Heather 13 (11.0-15.0) % Plt Count 246 (150-400) K/uL MPV 10.70 (7.40-12.00) fL Neut % (Auto) 77.9 (48.0-80.0) % Lymph % (Auto) 8.6 L (16.0-40.0) % Lucas % (Auto) 13.1 (0.0-15.0) % Eos % (Auto) 0.3 (0.0-7.0) % Baso % (Auto) 0.1 (0.0-1.5) % Neut # (Auto) 13.7 H (1.4-5.7) K/uL Lymph # (Auto) 1.5 (0.6-2.4) K/uL Lucas # (Auto) 2.3 H (0.0-0.8) K/uL Eos # (Auto) 0.1 (0.0-0.7) K/uL Baso # (Auto) 0.0 (0.0-0.1) K/uL Add Manual Diff Neutrophils % (Manual) (48.0-80.0) % Lymphocytes % (Manual) (16.0-40.0) % Monocytes % (Manual) (0.0-15.0) % Eosinophils % (Manual) (0.0-7.0) % Nucleated RBC % 0.0 /100WBC Absolute Seg Neuts (1.4-5.7) Lymphocytes # (Manual) (0.6-2.4) Monocytes # (Manual) (0.0-0.8) Eosinophils # (Manual) (0.0-0.7) Nucleated RBCs # 0 K/uL INR Lactate (0.20-2.00) mmol/L Sodium 136 (136-148) mmol/L Potassium 3.9 (3.5-5.1) mmol/L Chloride 103 (98-107) mmol/L Carbon Dioxide 26.0 (21.0-32.0) mmol/L BUN 9 (7.0-18.0) mg/dL Creatinine 0.9 (0.8-1.3) mg/dL Est Cr Clr Drug Dosing 124.38 mL/min Estimated GFR (MDRD) > 60.0 ml/min Glucose 100 (74-106) mg/dL Calcium 8.4 L (8.5-10.1) mg/dL Total Bilirubin 1.8 H (0.2-1.0) mg/dL AST 36 (15-37) IU/L ALT 53 (14-63) IU/L Alkaline Phosphatase 68 (46-116) U/L Troponin I (0.000-0.056) ng/mL Total Protein 6.8 (6.4-8.2) g/dL Albumin 3.3 L (3.4-5.0) g/dL Globulin 3.5 (2.6-4.0) g/dL Albumin/Globulin Ratio 0.9 (0.9-1.6) Lipase (73-393) U/L Urine Color Urine Appearance Urine pH (5.0-8.0) Ur Specific Ord (1.001-1.035) Urine Protein (NEGATIVE) mg/dL Urine Glucose (UA) (NEGATIVE) mg/dL Urine Ketones (NEGATIVE) mg/dL Urine Occult Blood (NEGATIVE) Urine Nitrite (NEGATIVE) Urine Bilirubin (NEGATIVE) Urine Urobilinogen (<2.0) EU/dL Ur Leukocyte Esterase (NEGATIVE) Urine RBC (0-2/HPF) Urine WBC (0-5/HPF) Ur Epithelial Cells (NONE-FEW) Urine Bacteria (NEGATIVE) SARS-CoV-2 RNA (YESENIA) (NEGATIVE) Med Orders - Current: Current Medications Acetaminophen (Tylenol) 650 mg PO Q4H PRN PRN Reason: Pain (Mild 1-3)/fever Last Admin: 03/26/20 07:32 Dose: 650 mg Documented by: Meropenem/Sodium Chloride 1 gm (/ Premix) 50 mls @ 100 mls/hr IV Q8H [facility] Last Admin: 03/26/20 06:43 Dose: 100 mls/hr Documented by: Lactated Ringer's (Ringers, Lactated) 1,000 mls @ 125 mls/hr IV ASDIRECTED [facility] Last Admin: 03/26/20 03:39 Dose: 125 mls/hr Documented by: Morphine Sulfate (Morphine) 2 mg IVPUSH Q4H PRN PRN Reason: Pain Ondansetron HCl (Zofran) 4 mg IVPUSH Q4H PRN PRN Reason: Nausea/Vomiting Sodium Chloride (Saline Flush) 10 ml FLUSH ASDIRECTED PRN PRN Reason: Keep Vein Open Last Admin: 03/25/20 13:36 Dose: 10 ml Documented by: Sodium Chloride (Saline Flush) 2.5 ml FLUSH ASDIRECTED PRN PRN Reason: Keep Vein Open Last Admin: 03/25/20 13:36 Dose: 2.5 ml Documented by: Discontinued Medications Acetaminophen (Tylenol Extra Strength) 1,000 mg PO ONETIME ONE Stop: 03/25/20 13:20 Last Admin: 03/25/20 13:35 Dose: 1,000 mg Documented by: Fentanyl (Fentanyl) 100 mcg IVPUSH ONETIME ONE Stop: 03/25/20 13:20 Last Admin: 03/25/20 13:35 Dose: 100 mcg Documented by: Lactated Ringer's (Ringers, Lactated) 1,000 mls @ 999 mls/hr IV .BOLUS ONE Stop: 03/25/20 14:18 Last Admin: 03/25/20 13:35 Dose: 999 mls/hr Documented by: Lactated Ringer's (Ringers, Lactated) 1,000 mls @ 999 mls/hr IV .BOLUS ONE Stop: 03/25/20 15:15 Last Admin: 03/25/20 15:00 Dose: 999 mls/hr Documented by: Lactated Ringer's (Ringers, Lactated) 250 mls @ 1,000 mls/hr IV .BOLUS LORIE Last Admin: 03/25/20 16:30 Dose: 1,000 mls/hr Documented by: Meropenem/Sodium Chloride 1 gm (/ Premix) 50 mls @ 100 mls/hr IV ONETIME ONE Stop: 03/25/20 15:14 Last Admin: 03/25/20 15:01 Dose: 100 mls/hr Documented by: Iopamidol (Isovue Multipack-370 (76%)) 100 ml IVPUSH ONETIME STA Stop: 03/25/20 14:35 Last Admin: 03/25/20 14:38 Dose: 100 ml Documented by: Potassium Chloride (Klor-Con M20) 40 meq PO ONETIME ONE Stop: 03/25/20 17:32 Last Admin: 03/25/20 17:55 Dose: 40 meq Documented by: - Exam General: Alert, Oriented Lungs: Clear to Auscultation, Normal Respiratory Effort Cardiovascular: Regular Rate, Regular Rhythm GI/Abdominal Exam: Normal Bowel Sounds, Soft, Tender (slight tenderness at suprapubic area below the umblicial region) Back Exam: No: CVA Tenderness (L), CVA Tenderness (R) Psy/Mental Status: Alert Sepsis Event Note - Evaluation Sepsis Screening Result: Sepsis Risk - Focused Exam Vital Signs: Vital Signs Temp Temp Pulse Resp BP Pulse Ox 03/26/20 11:35 97.9 F 81 20 118/70 96 03/26/20 08:21 98.1 F 03/26/20 07:32 101.8 F H 03/26/20 07:22 101.8 F H 102 H 18 112/58 L 91 L 03/26/20 04:11 99.1 F 109 H 19 116/62 92 L - Problem List Review Problem List Initiated/Reviewed/Updated: Yes - My Orders Last 24 Hours: My Active Orders 03/25/20 17:28 Morphine 2 mg IVPUSH Q4H PRN 03/25/20 17:30 Lactated Ringers [Ringers, Lactated] 1,000 ml IV ASDIRECTED 03/25/20 17:32 Acetaminophen [TylenoL] 650 mg PO Q4H PRN Ondansetron [Zofran] 4 mg IVPUSH Q4H PRN Resuscitation Status Routine 03/25/20 17:33 Oxygen Therapy [RC] PRN VTE/DVT Education [RC] PER UNIT ROUTINE Vital Signs [RC] Q4H 03/25/20 23:00 Meropenem Premix [Meropenem] 1 gm Premix Bag 1 bag IV Q8H 03/26/20 Lunch Clear Liquid Diet [DIET] - Plan Plan:: DiverticulitisIV Meropenem Q8, IV fluids LR 125ml/hr, IV morphine 2mg Q4hr, Zofran 4 mg Q4 hr PRN, Diet advanced to Clear liquid Leukocytosisimproving, 17.5, secondary to diverticulitis, patient will continue IV antibiotics, recheck CBC in the a.m. Hypokalemiaresolved, K+ 3.9
[2020-03-27 06:06] LABS: BLOOD UREA NITROGEN,BUN 7 mg/dL (7.0-18.0); CARBON DIOXIDE,CO2 26.7 mmol/L (21.0-32.0); CHLORIDE,CL 104 mmol/L (98-107); GLUCOSE RANDOM 94 mg/dL (74-106); SODIUM,NA 138 mmol/L (136-148)
[2020-03-27] MEDS: Meropenem Premix 1 GM in Premix Bag 1 BAG IV SCH (08:01)
[2020-03-27] MEDS: Lactated Ringers 1,000 ML IV SCH (10:26)
[2020-03-27 11:18] VITALS: BP 115/90; PULSE 72
--- NOTE | 2020-03-27 13:41 | PCM.DCSUM1 ---
<Jan Clancy - Last Filed: 03/27/20 13:41> Discharge Summary - Hospital Course Free Text/Narrative:: 24-year-old male admitted for diverticulitis. Patient presented to the emergency department with severe lower abdominal pain, and temperature of 102 F. Blood cultures obtained, IV fluids, pain medications given in the ED. CT abdomen pelvis concerning for strictly uncomplicated sigmoid diverticulitis. No evidence of free air or fistula formation. White blood cell count admission 18.49, normal lactate, K+ 3.4. Patient was started on IV meropenem. No past medical history, patient does not take any prescribed medications, patient states allergy to amoxicillin and penicillins which gives him a rash. On admission patient was continued on IV meropenem, made n.p.o. on the day of admission which iwas advanced to clear liquid diet following day, patient tolerated clear liquid diet well. Day of discharge patient denied any abdominal pain, able to tolerate diet. WBC on discharge 13.4. Patient discharged on ciprofloxacin 500 mg twice daily x8 days and Flagyl 500 mg 3 times daily x8 days. Patient advised to eat a light/soft diet on day of discharge and can advance diet as tolerated in the following days. - Discharge Data Discharge Date: 03/27/20 Discharge Disposition: Home, Self-Care 01 Condition: Good - Referral to Home Health Primary Care Physician: PCP None - Patient Instructions Diet: Mechanical Soft (Patient may have light/soft foods today (yogurt, soup, crackers, toast, bananas etc..) and advance diet as tolerated starting tommorow. ) Activity: As Tolerated Driving: Do Not Drive Showering/Bathing: May Shower Notify Provider of: Fever, Increased Pain, Swelling and Redness, Nausea and/or Vomiting - Discharge Plan Prescriptions/Med Rec: Ciprofloxacin [Ciprofloxacin HCl] 500 mg PO BID 8 Days #16 tab metroNIDAZOLE [Flagyl] 500 mg PO TID 8 Days #24 tablet Home Medications: Home Meds Ciprofloxacin [Ciprofloxacin HCl] 500 mg PO BID 8 Days #16 tab 03/27/20 [Rx] metroNIDAZOLE [Flagyl] 500 mg PO TID 8 Days #24 tablet 03/27/20 [Rx] Patient Handouts: Diverticulitis, [id number], Ciprofloxacin tablets, Metronidazole tablets or capsules Referrals: Jorge Correa MD [Physician] - 04/07/20 2:15 pm Jessica Casas DRAM[employer] TEACHER [Nurse Practitioner] - 04/02/20 3:45 pm - Discharge Summary/Plan Comment DC Time >30 min.: Yes - General Info Date of Service: 03/27/20 Subjective Update: Patient denies fever, chills, nausea, vomiting. States slight tenderness in the suprapubic area. States that he was able to tolerate his clear liquid diet overnight well. Would like to go home. - Review of Systems General: Denies: Fever, Chills Pulmonary: Denies: Shortness of Breath, Pleuritic Chest Pain Cardiovascular: Denies: Chest Pain, Palpitations, Dyspnea on Exertion Gastrointestinal: Denies: Abdominal Pain, Nausea, Vomiting Genitourinary: Denies: Dysuria Musculoskeletal: Denies: Back Pain Neurological: Denies: Confusion, Dizziness - Patient Data Vitals - Most Recent: Last Vital Signs Temp 98.1 F 03/27/20 11:17 Pulse 72 03/27/20 11:17 Resp 17 03/27/20 11:17 BP 115/90 03/27/20 11:17 Pulse Ox 96 03/27/20 11:17 Weight - Most Recent: 111.221 kg I&O - Last 24 hours: Intake & Output 03/26/20 03/27/20 03/27/20 22:59 06:59 14:59 Intake Total 1725 2340 Output Total 1100 1350 Balance 625 990 Lab Results - Last 24 hrs: Laboratory Results - last 24 hr 03/27/20 03/27/20 Range/Units 04:55 04:55 WBC 13.45 H (4.0-11.0) K/uL RBC 4.83 (4.50-5.90) M/uL Hgb 13.5 (13.0-17.0) g/dL Hct 42.6 (38.0-50.0) % MCV 88.2 (80.0-98.0) fL MCH 28.0 (27.0-32.0) pg MCHC 31.7 (31.0-37.0) g/dL RDW Std Deviation 40.8 (28.0-62.0) fl RDW Coeff of Heather 13 (11.0-15.0) % Plt Count 248 (150-400) K/uL MPV 10.90 (7.40-12.00) fL Neut % (Auto) 69.5 (48.0-80.0) % Lymph % (Auto) 16.6 (16.0-40.0) % Ramsey % (Auto) 12.2 (0.0-15.0) % Eos % (Auto) 1.6 (0.0-7.0) % Baso % (Auto) 0.1 (0.0-1.5) % Neut # (Auto) 9.3 H (1.4-5.7) K/uL Lymph # (Auto) 2.2 (0.6-2.4) K/uL Ramsey # (Auto) 1.6 H (0.0-0.8) K/uL Eos # (Auto) 0.2 (0.0-0.7) K/uL Baso # (Auto) 0.0 (0.0-0.1) K/uL Nucleated RBC % 0.0 /100WBC Nucleated RBCs # 0 K/uL Sodium 138 (136-148) mmol/L Potassium 4.0 (3.5-5.1) mmol/L Chloride 104 (98-107) mmol/L Carbon Dioxide 26.7 (21.0-32.0) mmol/L BUN 7 (7.0-18.0) mg/dL Creatinine 0.8 (0.8-1.3) mg/dL Est Cr Clr Drug Dosing 139.93 mL/min Estimated GFR (MDRD) > 60.0 ml/min Glucose 94 (74-106) mg/dL Calcium 8.6 (8.5-10.1) mg/dL Total Bilirubin 0.7 (0.2-1.0) mg/dL AST 24 (15-37) IU/L ALT 42 (14-63) IU/L Alkaline Phosphatase 67 (46-116) U/L Total Protein 6.9 (6.4-8.2) g/dL Albumin 3.1 L (3.4-5.0) g/dL Globulin 3.8 (2.6-4.0) g/dL Albumin/Globulin Ratio 0.8 L (0.9-1.6) DEBBIE Results - Last 24 hrs: Microbiology 03/25/20 14:00 Aerobic Blood Culture - Preliminary Blood - Venous - Lab Draw NO GROWTH AFTER 1 DAY Anaerobic Blood Culture - Preliminary NO GROWTH AFTER 1 DAY 03/25/20 13:30 Aerobic Blood Culture - Preliminary Blood - Venous NO GROWTH AFTER 1 DAY Anaerobic Blood Culture - Preliminary NO GROWTH AFTER 1 DAY Med Orders - Current: Current Medications Acetaminophen (Tylenol) 650 mg PO Q4H PRN PRN Reason: Pain (Mild 1-3)/fever Last Admin: 03/26/20 07:32 Dose: 650 mg Documented by: Meropenem/Sodium Chloride 1 gm (/ Premix) 50 mls @ 100 mls/hr IV Q8H [facility] Last Admin: 03/27/20 08:01 Dose: 100 mls/hr Documented by: Lactated Ringer's (Ringers, Lactated) 1,000 mls @ 125 mls/hr IV ASDIRECTED [facility] Last Admin: 03/27/20 10:26 Dose: 125 mls/hr Documented by: Morphine Sulfate (Morphine) 2 mg IVPUSH Q4H PRN PRN Reason: Pain Ondansetron HCl (Zofran) 4 mg IVPUSH Q4H PRN PRN Reason: Nausea/Vomiting Sodium Chloride (Saline Flush) 10 ml FLUSH ASDIRECTED PRN PRN Reason: Keep Vein Open Last Admin: 03/25/20 13:36 Dose: 10 ml Documented by: Sodium Chloride (Saline Flush) 2.5 ml FLUSH ASDIRECTED PRN PRN Reason: Keep Vein Open Last Admin: 03/25/20 13:36 Dose: 2.5 ml Documented by: Discontinued Medications Acetaminophen (Tylenol Extra Strength) 1,000 mg PO ONETIME ONE Stop: 03/25/20 13:20 Last Admin: 03/25/20 13:35 Dose: 1,000 mg Documented by: Fentanyl (Fentanyl) 100 mcg IVPUSH ONETIME ONE Stop: 03/25/20 13:20 Last Admin: 03/25/20 13:35 Dose: 100 mcg Documented by: Lactated Ringer's (Ringers, Lactated) 1,000 mls @ 999 mls/hr IV .BOLUS ONE Stop: 03/25/20 14:18 Last Admin: 03/25/20 13:35 Dose: 999 mls/hr Documented by: Lactated Ringer's (Ringers, Lactated) 1,000 mls @ 999 mls/hr IV .BOLUS ONE Stop: 03/25/20 15:15 Last Admin: 03/25/20 15:00 Dose: 999 mls/hr Documented by: Lactated Ringer's (Ringers, Lactated) 250 mls @ 1,000 mls/hr IV .BOLUS LORIE Last Admin: 03/25/20 16:30 Dose: 1,000 mls/hr Documented by: Meropenem/Sodium Chloride 1 gm (/ Premix) 50 mls @ 100 mls/hr IV ONETIME ONE Stop: 03/25/20 15:14 Last Admin: 03/25/20 15:01 Dose: 100 mls/hr Documented by: Iopamidol (Isovue Multipack-370 (76%)) 100 ml IVPUSH ONETIME STA Stop: 03/25/20 14:35 Last Admin: 03/25/20 14:38 Dose: 100 ml Documented by: Potassium Chloride (Klor-Con M20) 40 meq PO ONETIME ONE Stop: 03/25/20 17:32 Last Admin: 03/25/20 17:55 Dose: 40 meq Documented by: - Exam General: Reports: Alert, Oriented Lungs: Reports: Clear to Auscultation, Normal Respiratory Effort Cardiovascular: Reports: Regular Rate, Regular Rhythm GI/Abdominal Exam: Normal Bowel Sounds, Soft, Tender (mild tenderness on palpatation at suprapubic area ) Back Exam: Denies: CVA Tenderness (L), CVA Tenderness (R) Extremities: No Pedal Edema Neurological: Reports: Sensation Intact Psy/Mental Status: Reports: Alert <Jeremy Rodrigues - Last Filed: 03/27/20 21:02> Discharge Summary - Referral to Home Health Primary Care Physician: PCP None - Patient Data Vitals - Most Recent: Last Vital Signs Temp 36.7 C 03/27/20 11:17 Pulse 72 03/27/20 11:17 Resp 17 03/27/20 11:17 BP 115/90 03/27/20 11:17 Pulse Ox 96 03/27/20 11:17 I&O - Last 24 hours: Intake & Output 03/27/20 03/27/20 03/27/20 06:59 14:59 22:59 Intake Total 2340 Output Total 1350 Balance 990 Lab Results - Last 24 hrs: Laboratory Results - last 24 hr 03/27/20 03/27/20 Range/Units 04:55 04:55 WBC 13.45 H (4.0-11.0) K/uL RBC 4.83 (4.50-5.90) M/uL Hgb 13.5 (13.0-17.0) g/dL Hct 42.6 (38.0-50.0) % MCV 88.2 (80.0-98.0) fL MCH 28.0 (27.0-32.0) pg MCHC 31.7 (31.0-37.0) g/dL RDW Std Deviation 40.8 (28.0-62.0) fl RDW Coeff of Heather 13 (11.0-15.0) % Plt Count 248 (150-400) K/uL MPV 10.90 (7.40-12.00) fL Neut % (Auto) 69.5 (48.0-80.0) % Lymph % (Auto) 16.6 (16.0-40.0) % Ramsey % (Auto) 12.2 (0.0-15.0) % Eos % (Auto) 1.6 (0.0-7.0) % Baso % (Auto) 0.1 (0.0-1.5) % Neut # (Auto) 9.3 H (1.4-5.7) K/uL Lymph # (Auto) 2.2 (0.6-2.4) K/uL Ramsey # (Auto) 1.6 H (0.0-0.8) K/uL Eos # (Auto) 0.2 (0.0-0.7) K/uL Baso # (Auto) 0.0 (0.0-0.1) K/uL Nucleated RBC % 0.0 /100WBC Nucleated RBCs # 0 K/uL Sodium 138 (136-148) mmol/L Potassium 4.0 (3.5-5.1) mmol/L Chloride 104 (98-107) mmol/L Carbon Dioxide 26.7 (21.0-32.0) mmol/L BUN 7 (7.0-18.0) mg/dL Creatinine 0.8 (0.8-1.3) mg/dL Est Cr Clr Drug Dosing 139.93 mL/min Estimated GFR (MDRD) > 60.0 ml/min Glucose 94 (74-106) mg/dL Calcium 8.6 (8.5-10.1) mg/dL Total Bilirubin 0.7 (0.2-1.0) mg/dL AST 24 (15-37) IU/L ALT 42 (14-63) IU/L Alkaline Phosphatase 67 (46-116) U/L Total Protein 6.9 (6.4-8.2) g/dL Albumin 3.1 L (3.4-5.0) g/dL Globulin 3.8 (2.6-4.0) g/dL Albumin/Globulin Ratio 0.8 L (0.9-1.6) DEBBIE Results - Last 24 hrs: Microbiology 03/25/20 14:00 Aerobic Blood Culture - Preliminary Blood - Venous - Lab Draw NO GROWTH AFTER 2 DAYS Anaerobic Blood Culture - Preliminary NO GROWTH AFTER 2 DAYS 03/25/20 13:30 Aerobic Blood Culture - Preliminary Blood - Venous NO GROWTH AFTER 2 DAYS Anaerobic Blood Culture - Preliminary NO GROWTH AFTER 2 DAYS Med Orders - Current: Current Medications Discontinued Medications Acetaminophen (Tylenol Extra Strength) 1,000 mg PO ONETIME ONE Stop: 03/25/20 13:20 Last Admin: 03/25/20 13:35 Dose: 1,000 mg Documented by: Acetaminophen (Tylenol) 650 mg PO Q4H PRN PRN Reason: Pain (Mild 1-3)/fever Last Admin: 03/26/20 07:32 Dose: 650 mg Documented by: Fentanyl (Fentanyl) 100 mcg IVPUSH ONETIME ONE Stop: 03/25/20 13:20 Last Admin: 03/25/20 13:35 Dose: 100 mcg Documented by: Lactated Ringer's (Ringers, Lactated) 1,000 mls @ 999 mls/hr IV .BOLUS ONE Stop: 03/25/20 14:18 Last Admin: 03/25/20 13:35 Dose: 999 mls/hr Documented by: Lactated Ringer's (Ringers, Lactated) 1,000 mls @ 999 mls/hr IV .BOLUS ONE Stop: 03/25/20 15:15 Last Admin: 03/25/20 15:00 Dose: 999 mls/hr Documented by: Lactated Ringer's (Ringers, Lactated) 250 mls @ 1,000 mls/hr IV .BOLUS LORIE Last Admin: 03/25/20 16:30 Dose: 1,000 mls/hr Documented by: Meropenem/Sodium Chloride 1 gm (/ Premix) 50 mls @ 100 mls/hr IV ONETIME ONE Stop: 03/25/20 15:14 Last Admin: 03/25/20 15:01 Dose: 100 mls/hr Documented by: Meropenem/Sodium Chloride 1 gm (/ Premix) 50 mls @ 100 mls/hr IV Q8H [facility] Last Admin: 03/27/20 08:01 Dose: 100 mls/hr Documented by: Lactated Ringer's (Ringers, Lactated) 1,000 mls @ 125 mls/hr IV ASDIRECTED [facility] Last Admin: 03/27/20 10:26 Dose: 125 mls/hr Documented by: Iopamidol (Isovue Multipack-370 (76%)) 100 ml IVPUSH ONETIME STA Stop: 03/25/20 14:35 Last Admin: 03/25/20 14:38 Dose: 100 ml Documented by: Morphine Sulfate (Morphine) 2 mg IVPUSH Q4H PRN PRN Reason: Pain Ondansetron HCl (Zofran) 4 mg IVPUSH Q4H PRN PRN Reason: Nausea/Vomiting Potassium Chloride (Klor-Con M20) 40 meq PO ONETIME ONE Stop: 03/25/20 17:32 Last Admin: 03/25/20 17:55 Dose: 40 meq Documented by: Sodium Chloride (Saline Flush) 10 ml FLUSH ASDIRECTED PRN PRN Reason: Keep Vein Open Last Admin: 03/25/20 13:36 Dose: 10 ml Documented by: Sodium Chloride (Saline Flush) 2.5 ml FLUSH ASDIRECTED PRN PRN Reason: Keep Vein Open Last Admin: 03/25/20 13:36 Dose: 2.5 ml Documented by: - Free Text/Narrative Note: I have seen and evaluated the patient. I have discussed findings and treatment plan with resident. I agree with the assessment and plan in the following note.
== END 2020-03-27 15:00 | disposition home or self-care (01) | DRG 392 ==
LOC: MW.ED 12:59 → MW.MS 16:33
PROVIDERS: ADMIT Internal Medicine; ATTEND Internal Medicine
DX: K57.32 Diverticulitis of large intestine without perforation or abscess without bleeding (principal); E87.6 Hypokalemia; Z79.899 Other long term (current) drug therapy; Z88.1 Allergy status to other antibiotic agents; Z88.0 Allergy status to penicillin; Z20.828 Contact with and (suspected) exposure to other viral communicable diseases
CPT/HCPCS: 36415; 71045; 71045-26; 74177; 74177-26; 80053; 81001; 83605; 83690; 84484; 85025; 85610; 87040; 96365; 96375; 99218; 99222; 99232; 99284; 99285-25; A9270-GY; J2185; J3010; J7120; Q9967; U0002

== ENCOUNTER 2021-09-30 16:21 | Emergency (ER) | payer BC ==
[2021-09-30] MEDS ORDERED: Lidocaine/Epineph/Tetracaine 3 ML Syringe TOP ONE (17:03)
[2021-09-30] MEDS ORDERED: Ketorolac 60 MG/2 ML SDV IM ONE (17:40)
[2021-09-30] MEDS ORDERED: Acetaminophen/oxyCODONE 325-5 MG Tab PO ONE (17:41)
[2021-09-30 18:53] VITALS: BP 130/71; PULSE 78
== END 2021-09-30 18:30 | disposition home or self-care (01) ==
LOC: MW.ED 16:21
DX: S01.01XA Laceration without foreign body of scalp, initial encounter (principal); Z88.0 Allergy status to penicillin; W22.09XA Striking against other stationary object, initial encounter
CPT/HCPCS: 12004; 99282; A9270

== ENCOUNTER 2025-01-08 21:54 | Emergency (ER) | payer BC ==
[2025-01-08 22:57] LABS: BASOPHILS ABSOLUTE AUTO 0.04 K/uL (0.00-0.20); BASOPHILS PERCENT AUTO 0.4 % (0.0-1.0); EOSINOPHILS ABSOLUTE AUTO 0.08 K/uL (0.00-0.45); EOSINOPHILS PERCENT AUTO 0.7 % (0.0-6.0); IMMATURE GRAN ABSOLUTE AUTO 0.04 K/uL (0.00-0.05); IMMATURE GRAN PERCENT AUTO 0.4 % (0.0-0.4); LYMPHOCYTES ABSOLUTE AUTO 2.35 K/uL (1.00-4.80); LYMPHOCYTES PERCENT AUTO 21.6 % (24.0-44.0); MEAN PLATELET VOLUME 9.8 fL (9.4-12.4); MONOCYTES ABSOLUTE AUTO 1.19 K/uL (0.00-0.80); MONOCYTES PERCENT AUTO 10.9 % (0.0-8.0); NEUTROPHILS ABSOLUTE AUTO 7.17 K/uL (1.80-7.70); NEUTROPHILS PERCENT AUTO 66.0 % (41.0-71.0); NRBC ABSOLUTE 0.00 K/uL (0.00-0.02); NRBC PERCENT 0.0 /100WBC (0.0-0.2); PLATELET COUNT,PLT 262 K/uL (150-400); RED BLOOD CELL COUNT 5.35 M/uL (4.52-5.90); WHITE BLOOD CELL COUNT,WBC 10.87 K/uL (3.9-11.3)
[2025-01-08 23:43] LABS: A/G RATIO 1.2 (0.9-1.6); ALANINE AMINOTRANSFERASE,ALT 32.0 IU/L (14-63); BILIRUBIN TOTAL 0.6 mg/dL (0.2-1.0); BLOOD UREA NITROGEN,BUN 14.0 mg/dL (7.0-18.0); CARBON DIOXIDE,CO2 29.8 mmol/L (21.0-32.0); CHLORIDE,CL 100.0 mmol/L (98-107); CREATININE 1.0 mg/dL (0.8-1.3); EST CRCL DRUG DOSING (CG) 110.51 mL/min; ESTIMATED GFR 103.0 mL/min (>60); GLUCOSE RANDOM 101.0 mg/dL (74-106); POTASSIUM,K 3.8 mmol/L (3.5-5.1); PROTEIN TOTAL,TP 7.2 g/dL (6.4-8.2); SODIUM,NA 134.0 mmol/L (136-148)
[2025-01-08 23:51] LABS: ASPARTATE AMNIOTRANSFERASE,AST 22.0 IU/L (15-37)
[2025-01-09 01:38] VITALS: BP 120/79; PULSE 89
== END 2025-01-09 01:43 | disposition home or self-care (01) ==
LOC: MW.ED 21:54
DX: B34.9 Viral infection, unspecified (principal); E86.0 Dehydration; Z88.0 Allergy status to penicillin; Z88.8 Allergy status to other drugs, medicaments and biological substances
CPT/HCPCS: 36415; 71046; 80053; 84484; 85025; 85379; 87426; 93005; 96360; 99285; J7050; 93010; 99284